=== PATIENT | female | born 1975 | race Hispanic/Latino ===

== ENCOUNTER → 2016-10-06 | Outpatient (CLI) | payer OTHER ==
--- NOTE | 2016-10-07 06:01 | ECHO ---
DATE OF PROCEDURE: 10/06/2016 REFERRING PHYSICIAN: Dr. Jay Marie. INDICATION: Murmur. HEIGHT: 157 cm. WEIGHT: 82.1 kg. MEASUREMENTS: Ventricular septum: 1.09 cm Posterior wall: 0.93 cm Left ventricle diastole: 4.0 cm Left atrium: 3.7 cm LVOT: 1.8 cm Aortic root: 2.4 cm Inferior vena cava: 1.9 cm DOPPLER MEASUREMENTS: Aortic valve velocity: 251 cm/s LVOT VTI: 45.8 cm Peak aortic valve gradient: 25 mmHg. Mean aortic valve gradient: 13 mmHg. LVOT velocity: 126 cm/s LVOT VTI: 23.8 cm Mitral E velocity: 79.0 cm/s Mitral A velocity: 78.5 cm/s Mitral deacceleration time: 243 ms Very mild tricuspid regurgitation. Pulmonary artery systolic pressure 25 mmHg by pulmonary acceleration time method. DESCRIPTION: Rhythm was sinus. Image quality was good. No pericardial effusion. CONCLUSIONS: 1. Mild focal thickening of a 3-cusp aortic valve. Slight degree of aortic valve stenosis. No aortic regurgitation. 2. Mild mitral aortic calcification. No mitral regurgitation. 3. Normal left ventricle, internal dimension and wall thickness. Normal LV wall motion and wall thickening. Normal LV systolic and diastolic function. LVEF 65% by visual estimate.
== END ==
LOC: M CARPUL 14:33
PROVIDERS: ATTEND Family Medicine
DX: R01.1 Cardiac murmur, unspecified (principal)

== ENCOUNTER → 2017-02-19 | Outpatient (REF) | payer OTHER | LOC: M SFHCWAGY 13:57 | PROVIDERS: ATTEND Family Medicine | DX: Z12.4 Encounter for screening for malignant neoplasm of cervix (principal); Z11.3 Encounter for screening for infections with a predominantly sexual mode of transmission ==

== ENCOUNTER → 2017-03-09 | Outpatient (CLI) | payer OTHER ==
--- NOTE | 2017-03-09 12:00 | REPMRS ---
Patient History The patient states she had a clinical breast exam in 02/10 Baseline Mammogram No known family history of cancer. [facility] Woman Screen Mammo: March 09, 2017 - Exam #: [id number] Bilateral CC and MLO view(s) were taken. Technologist: Loraine Valdez, Technologist FINDINGS: There are scattered fibroglandular densities. There is no evidence of cancer on this mammogram. ASSESSMENT: BI-RADS/ACR category 2 mammogram. Benign finding(s). Recommendation Routine screening mammogram of both breasts in 1 year (for women over age 40). This mammogram was interpreted with the aid of an FDA-approved computer-aided dectection system. Electronically Signed By: Praveen Lopez MD 03/09/17 1200
== END ==
LOC: M WHC 09:42
PROVIDERS: ATTEND Family Medicine
DX: Z12.31 Encounter for screening mammogram for malignant neoplasm of breast (principal)

== ENCOUNTER → 2017-03-09 | Outpatient (CLI) | payer OTHER ==
[2017-03-09 10:11] LABS: BASO % 0.4 % (0.0-1.0); EOS # 0.2 K/mm3 (0.0-0.50); EOS % 3.5 % (0.0-3.0); LARGE UNSTAINED CELL # 0.1 K/mm3 (0.0-0.4); LARGE UNSTAINED CELL % 2.6 % (0.0-4.0); LYMPH # 1.3 K/mm3 (1.5-4.5); LYMPH % 23.3 % (24.0-44.0); MEAN CORPUSCULAR HEMOGLOBIN 18.5 pg (27.0-33.0); MEAN CORPUSCULAR HGB CONC 28.5 g/dl (32.0-36.5); MEAN CORPUSCULAR VOLUME 64.9 fl (80.0-96.0); MONO # 0.3 K/mm3 (0.0-0.8); MONO % 5.2 % (0.0-5.0); NEUTROPHILS # 3.2 K/mm3 (1.8-7.7); PLATELET COUNT, AUTOMATED 402 k/mm3 (150-450); RED CELL DISTRIBUTION WIDTH 17.5 % (11.5-14.5); WHITE BLOOD COUNT 4.9 K/mm3 (4.0-10.0)
[2017-03-09 10:28] LABS: ADD MORPHOLOGY? YES
[2017-03-09 10:30] LABS: ANISOCYTOSIS 1+; HYPOCHROMASIA 3+
[2017-03-09 10:31] LABS: MICROCYTOSIS 3+
[2017-03-09 10:47] LABS: VITAMIN B12 LEVEL 446 PG/ML (247-911)
[2017-03-09 10:48] LABS: FOLATE 18.9 NG/ML (>5.4)
[2017-03-09 11:11] LABS: ALBUMIN 3.4 GM/DL (3.2-5.2); ALBUMIN/GLOBULIN RATIO 0.71 (1.00-1.93); ALKALINE PHOSPHATASE 112 U/L (45-117); ALT/SGPT 21 U/L (12-78); ANION GAP 4 MEQ/L (8-16); AST/SGOT 18 U/L (15-37); BILIRUBIN,TOTAL 0.4 MG/DL (0.2-1.0); BLOOD UREA NITROGEN 10 MG/DL (7-18); CALCIUM LEVEL 9.1 MG/DL (8.5-10.1); CARBON DIOXIDE LEVEL 28 MEQ/L (21-32); CHLORIDE LEVEL 102 MEQ/L (98-107); CHOLESTEROL LEVEL 147 MG/DL (<200); CREATININE FOR GFR 0.75 MG/DL (0.55-1.02); FREE T4 0.95 NG/DL (0.76-1.46); GLOMERULAR FILTRATION RATE > 60.0 (>58); GLUCOSE, FASTING 85 MG/DL (70-105); POTASSIUM SERUM 4.7 MEQ/L (3.5-5.1); SODIUM LEVEL 134 MEQ/L (136-145); TOTAL PROTEIN 8.2 GM/DL (6.4-8.2); TRIGLYCERIDES LEVEL 110 MG/DL (<150)
--- NOTE | 2017-03-10 02:31 | REP ---
Clinical: Lower back pain extending to the extremities. Technique: AP, lateral, bilateral oblique and coned-down views. Findings: Advanced multilevel degenerative disc osteophyte complex noted at the L3-4, L4-5, and L5-S1 levels. Findings include osteophytosis, endplate sclerosis, disc space narrowing and hypertrophic facet changes. Mild degenerative changes noted throughout the remaining visualized lower thoracic and lumbar spine. Alignment and lordosis maintained. No acute fracture / compression injury or subluxation. Impression: 1. Advanced multilevel degenerative disc osteophyte complex at the L3-4 through L5-S1 levels along with mild to moderate degenerative changes to the remaining in the lower thoracic and lumbar spine. 2. No acute fracture / compression injury or subluxation. Signed by Darrell Dejesus MD 03/10/2017 02:22 A
== END ==
LOC: M LAB 09:00
PROVIDERS: ATTEND Physician Assistant
DX: Z00.00 Encounter for general adult medical examination without abnormal findings (principal); M51.16 Intervertebral disc disorders with radiculopathy, lumbar region

== ENCOUNTER → 2017-03-12 | Outpatient (CLI) | payer OTHER ==
[2017-03-12 15:28] LABS: PERCENT SATURATION 6.7 % (13.2-37.4)
[2017-03-12 15:53] LABS: BASO % 0.4 % (0.0-1.0); EOS # 0.2 K/mm3 (0.0-0.50); EOS % 3.1 % (0.0-3.0); LARGE UNSTAINED CELL # 0.1 K/mm3 (0.0-0.4); LARGE UNSTAINED CELL % 1.9 % (0.0-4.0); LYMPH # 1.5 K/mm3 (1.5-4.5); LYMPH % 23.2 % (24.0-44.0); MEAN CORPUSCULAR HEMOGLOBIN 18.7 pg (27.0-33.0); MEAN CORPUSCULAR HGB CONC 28.8 g/dl (32.0-36.5); MONO # 0.4 K/mm3 (0.0-0.8); MONO % 6.4 % (0.0-5.0); PLATELET COUNT, AUTOMATED 385 k/mm3 (150-450); RED CELL DISTRIBUTION WIDTH 17.4 % (11.5-14.5); WHITE BLOOD COUNT 6.2 K/mm3 (4.0-10.0)
[2017-03-12 15:56] LABS: ADD MORPHOLOGY? YES
[2017-03-12 21:25] LABS: HYPOCHROMASIA 2+; MICROCYTOSIS 3+
[2017-03-12 21:26] LABS: ANISOCYTOSIS 2+
== END ==
LOC: M LAB 13:30
PROVIDERS: ATTEND Physician Assistant
DX: D64.9 Anemia, unspecified (principal)

== ENCOUNTER 2017-03-25 16:45 | Emergency (ER) | payer OTHER ==
[~2017-03-25] VITALS: Ht 157.5 cm; Wt 86.1 kg
[2017-03-25] MEDS ORDERED: IRON65TA PO (16:55)
[2017-03-25] MEDS ORDERED: OMEP40CA2 PO (16:55)
[2017-03-25] MEDS ORDERED: TRAM50TA2 PO (16:55)
[2017-03-25 18:09] VITALS: BP 106/62
== END 2017-03-25 18:09 | disposition home or self-care (01) ==
LOC: M ED 16:45
DX: D50.9 Iron deficiency anemia, unspecified (principal); E11.9 Type 2 diabetes mellitus without complications; J45.909 Unspecified asthma, uncomplicated; Z98.84 Bariatric surgery status; B19.20 Unspecified viral hepatitis C without hepatic coma; Z79.899 Other long term (current) drug therapy

== ENCOUNTER → 2017-03-25 | Outpatient (CLI) | payer OTHER ==
[~2017-03-25] MED LIST: IRON65TA PO; OMEP40CA2 PO; TRAM50TA2 PO
[2017-03-25 13:16] LABS: BASO % 0.6 % (0.0-1.0); EOS # 0.3 K/mm3 (0.0-0.50); EOS % 3.9 % (0.0-3.0); LARGE UNSTAINED CELL # 0.1 K/mm3 (0.0-0.4); LARGE UNSTAINED CELL % 2.1 % (0.0-4.0); LYMPH # 1.3 K/mm3 (1.5-4.5); LYMPH % 17.3 % (24.0-44.0); MEAN CORPUSCULAR HEMOGLOBIN 18.2 pg (27.0-33.0); MEAN CORPUSCULAR HGB CONC 28.1 g/dl (32.0-36.5); MEAN CORPUSCULAR VOLUME 64.7 fl (80.0-96.0); MONO # 0.5 K/mm3 (0.0-0.8); NEUTROPHILS # 4.6 K/mm3 (1.8-7.7); PLATELET COUNT, AUTOMATED 348 k/mm3 (150-450); RED CELL DISTRIBUTION WIDTH 18.6 % (11.5-14.5); WHITE BLOOD COUNT 6.6 K/mm3 (4.0-10.0)
[2017-03-25 13:22] LABS: ADD MORPHOLOGY? YES
[2017-03-25 13:54] LABS: HYPOCHROMASIA 3+; MICROCYTOSIS 3+
[2017-03-25 13:55] LABS: ANISOCYTOSIS 2+
[2017-03-29 14:10] LABS: HEPATITIS C QUANTITATION HCV Not Detected IU/mL (.)
== END ==
LOC: M LAB 12:20
PROVIDERS: ATTEND Physician Assistant
DX: D50.9 Iron deficiency anemia, unspecified (principal)

== ENCOUNTER → 2017-04-01 | Outpatient (CLI) | payer OTHER ==
--- NOTE | 2017-04-01 16:05 | REP ---
Clinical: Venous insufficiency. Technique: Real time justice scale and color Doppler evaluation of the right lower extremity venous system. Findings: The greater saphenous vein and associated small collaterals and perforating vessels demonstrate no evidence for reflux. The deep venous system demonstrates reflux including the common femoral vein, superficial femoral vein and popliteal vein. The anterior accessory saphenous vein demonstrates minimal reflux when the patient is in the upright position only. The lesser saphenous vein demonstrates significant reflux extending into multiple peripheral collateral vessels. The lesser saphenous vein distends to 9.4 mm with a reflux duration of 3.1 seconds. Impression: Reflux noted throughout the deep venous system as well as involving the lesser saphenous vein. Signed by Darrell Dejesus MD 04/01/2017 03:56 P
== END ==
LOC: M RAD 13:58
PROVIDERS: ATTEND Physician Assistant
DX: I83.811 Varicose veins of right lower extremity with pain (principal)

== ENCOUNTER → 2017-04-04 | Outpatient (CLI) | payer OTHER | LOC: M LAB 08:35 | PROVIDERS: ATTEND Physician Assistant | DX: J02.9 Acute pharyngitis, unspecified (principal) ==

== ENCOUNTER → 2017-07-15 | Outpatient (CLI) | payer OTHER ==
[2017-07-15 16:31] LABS: BASO # 0.1 10^3/uL (0.0-0.2); BASO % 0.9 % (0.0-1.0); EOS # 0.6 10^3/uL (0.0-0.50); EOS % 9.9 % (0.0-3.0); IMMATURE GRANULOCYTE % 0.3 % (0-0); LYMPH # 1.3 10^3/uL (1.5-4.5); LYMPH % 20.4 % (24.0-44.0); MEAN CORPUSCULAR HGB CONC 27.9 g/dl (32.0-36.5); MONO # 0.8 10^3/uL (0.0-0.8); MONO % 11.8 % (0.0-5.0); NEUTROPHILS # 3.6 10^3/uL (1.8-7.7); NEUTROPHILS % 56.7 % (36.0-66.0); PLATELET COUNT, AUTOMATED 331 10^3/uL (150-450); RETIC HEMOGLOBIN EQUIVALENT 20.8 pg (24-36); RETICULOCYTE % 1.3 % (0.5-1.5); WHITE BLOOD COUNT 6.4 10^3/uL (4.0-10.0)
[2017-07-15 16:37] LABS: ADD MORPHOLOGY? YES; MEAN CORPUSCULAR VOLUME 64.7 fl (80.0-96.0); POSITIVE MORPH POS FLAG; RED CELL DISTRIBUTION WIDTH 22.1 % (11.5-14.5)
[2017-07-15 17:50] LABS: HYPOCHROMASIA 2+; POLYCHROMASIA 1+
[2017-07-15 17:51] LABS: ANISOCYTOSIS 2+; MICROCYTOSIS 1+; OVALOCYTES 1+; POIKILOCYTOSIS 2+
== END ==
LOC: M LAB 15:51
PROVIDERS: ATTEND Physician Assistant
DX: D50.8 Other iron deficiency anemias (principal); Z98.84 Bariatric surgery status

== ENCOUNTER 2017-08-21 02:09 | Emergency (ER) | payer OTHER ==
[~2017-08-21] VITALS: Ht 157.5 cm; Wt 84.1 kg
[2017-08-21 02:10] VITALS: BP 128/85
[2017-08-21] MEDS ORDERED: AMOX875T PO (02:15)
[2017-08-21] MEDS ORDERED: AMPICILLIN SOD/SULBACTAM SOD 3 GM in D5W MINI-BAG PLUS 100 ML IV ONE (02:30)
[2017-08-21] MEDS ORDERED: AUGMENTIN 875 MG TAB PO ONE (02:45)
[2017-08-21] MEDS ORDERED: LIDOCAINE W/EPINEPHRINE 1% 20ML VIAL As Ordered ONE (02:51)
[2017-08-21] MEDS ORDERED: AUGM500T34 PO (03:35)
== END 2017-08-21 03:46 | disposition left against medical advice (07) ==
LOC: M ED 02:09
DX: S11.91XA Laceration without foreign body of unspecified part of neck, initial encounter (principal); W54.0XXA Bitten by dog, initial encounter; Y92.9 Unspecified place or not applicable; Y93.9 Activity, unspecified; Y99.9 Unspecified external cause status; Z86.39 Personal history of other endocrine, nutritional and metabolic disease; Z98.84 Bariatric surgery status; Z79.899 Other long term (current) drug therapy; Z53.21 Procedure and treatment not carried out due to patient leaving prior to being seen by health care provider

== ENCOUNTER 2018-01-19 22:50 | Emergency (ER) | payer OTHER ==
[2018-01-19] MEDS: diphenhydrAMINE INJ 50MG/ML VIAL (J1200) IV (23:58)
[2018-01-19] MEDS: dexameTHASONE 20 MG/5 ML VIAL (J1100) IV (23:58)
== END 2018-01-20 01:29 | disposition home or self-care (01) ==
LOC: M ED 22:50
DX: T78.40XA Allergy, unspecified, initial encounter (principal); Y92.9 Unspecified place or not applicable; Y93.9 Activity, unspecified; Z98.84 Bariatric surgery status
CPT/HCPCS: J1200

== ENCOUNTER 2018-03-29 11:12 | Emergency (ER) | payer OTHER ==
[2018-03-29] MEDS ORDERED: FAMOTIDINE IV BAG 20 MG in APPROPRIATE DILUENT 1 EA IV (12:30)
[2018-03-29] MEDS ORDERED: diphenhydrAMINE INJ 50MG/ML VIAL (J1200) IV (12:30)
[2018-03-29] MEDS ORDERED: methylPREDNISolone INJ 125 MG/2 ML VIAL (J2930) IV (12:30)
[2018-03-29] MEDS: ALBUTEROL SULFATE 2.5 MG/0.5 ML INH NEB SOLN NEB (12:53)
[2018-03-29] MEDS: diphenhydrAMINE 50 MG CAP PO (12:55)
[2018-03-29] MEDS: predniSONE 20 MG TAB PO (12:55)
[2018-03-29] MEDS: FAMOTIDINE 20 MG TAB PO (12:55)
== END 2018-03-29 13:17 | disposition home or self-care (01) ==
LOC: M ED 11:12
DX: J45.901 Unspecified asthma with (acute) exacerbation (principal); Z87.2 Personal history of diseases of the skin and subcutaneous tissue; E11.9 Type 2 diabetes mellitus without complications; Z98.0 Intestinal bypass and anastomosis status; Z98.890 Other specified postprocedural states
CPT/HCPCS: 94640

== ENCOUNTER → 2018-04-07 | Outpatient (CLI) | payer OTHER ==
[2018-04-07 10:18] LABS: BASO % 0.3 % (0.0-1.0); EOS # 0.2 10^3/uL (0.0-0.50); EOS % 3.3 % (0.0-3.0); HEMATOCRIT 38.8 % (36.0-47.0); HEMOGLOBIN 12.2 g/dl (12.0-15.5); IMMATURE GRANULOCYTE % 0.3 % (0-3.0); LYMPH # 1.2 10^3/uL (1.5-4.5); LYMPH % 20.8 % (24.0-44.0); MEAN CORPUSCULAR HGB CONC 31.4 g/dl (32.0-36.5); MEAN CORPUSCULAR VOLUME 82.7 fl (80.0-96.0); MONO # 0.5 10^3/uL (0.0-0.8); MONO % 8.6 % (0.0-5.0); NEUTROPHILS # 3.8 10^3/uL (1.8-7.7); NEUTROPHILS % 66.7 % (36.0-66.0); PLATELET COUNT, AUTOMATED 318 10^3/uL (150-450); RED BLOOD COUNT 4.69 10^6/uL (4.00-5.40); RED CELL DISTRIBUTION WIDTH 13.2 % (11.5-14.5); WHITE BLOOD COUNT 5.7 10^3/uL (4.0-10.0)
[2018-04-07 10:44] LABS: ERYTHROCYTE SEDIMENTATION RATE 41 mm/hr (0-20)
[2018-04-07 10:45] LABS: ALBUMIN 3.1 GM/DL (3.2-5.2); ALBUMIN/GLOBULIN RATIO 0.79 (1.00-1.93); ALKALINE PHOSPHATASE 103 U/L (45-117); ALT/SGPT 22 U/L (12-78); ANION GAP 7 MEQ/L (8-16); AST/SGOT 15 U/L (7-37); BILIRUBIN,TOTAL 0.4 MG/DL (0.2-1.0); BLOOD UREA NITROGEN 8 MG/DL (7-18); CALCIUM LEVEL 8.8 MG/DL (8.5-10.1); CARBON DIOXIDE LEVEL 28 MEQ/L (21-32); CHLORIDE LEVEL 107 MEQ/L (98-107); COMPLEMENT C4 28.1 MG/DL (10-40); CREATININE FOR GFR 0.72 MG/DL (0.55-1.30); GLOMERULAR FILTRATION RATE > 60.0 (>58); GLUCOSE, FASTING 123 MG/DL (70-100); POTASSIUM SERUM 4.6 MEQ/L (3.5-5.1); RHEUMATOID FACTOR QUANT < 10.0 IU/ML (<15.0); SODIUM LEVEL 142 MEQ/L (136-145); THYROXINE (T4) 10.4 UG/DL (4.5-12.0)
[2018-04-07 12:20] LABS: TOTAL T3 103.5 NG/DL (60.0-181.0)
[2018-04-08 09:44] LABS: THYROGLOBULIN ANTIBODY < 15.0 U/ML (<60.0); THYROID PEROXIDASE ANTIBODY < 28.0 U/ML (<60.0)
[2018-04-12 09:24] LABS: ANTINUCLEAR ANTIBODIES DIRECT Negative (Negative); IGE RECEPTOR ABY 1 20.5 (<10)
== END ==
LOC: M LAB 08:53
DX: L50.1 Idiopathic urticaria (principal)
CPT/HCPCS: 84443

== ENCOUNTER 2018-08-17 13:06 | Emergency (ER) | payer OTHER ==
[2018-08-17] MEDS: predniSONE 20 MG TAB PO (13:37)
[2018-08-17] MEDS: CYCLOBENZAPRINE 10 MG TAB PO (13:37)
== END 2018-08-17 13:39 | disposition home or self-care (01) ==
LOC: M ED 13:06
DX: S76.312A Strain of muscle, fascia and tendon of the posterior muscle group at thigh level, left thigh, initial encounter (principal); T78.40XA Allergy, unspecified, initial encounter; X58.XXXA Exposure to other specified factors, initial encounter; Y92.099 Unspecified place in other non-institutional residence as the place of occurrence of the external cause; Y93.9 Activity, unspecified; Y99.9 Unspecified external cause status; E11.9 Type 2 diabetes mellitus without complications; Z98.84 Bariatric surgery status; Z79.899 Other long term (current) drug therapy
CPT/HCPCS: 99283

== ENCOUNTER → 2019-01-02 | Outpatient (REF) | payer OTHER ==
[~2019-01-02] MED LIST changes: +ALBU17IN2 INH; +ALLE180T33 PO; +AMOX875T PO; +AUGM500T34 PO; +CETI10TA PO; +CYCL10TA PO; +HYDR1CAP25 PO; +PRED10PA2 PO; +PRED20TA PO; +RANI15TA PO; +VENTAER
[2019-01-02 19:40] LABS: BASO # 0.1 10^3/uL (0.0-0.2); BASO % 0.8 % (0.0-1.0); EOS # 0.4 10^3/uL (0.0-0.50); EOS % 5.3 % (0.0-3.0); HEMATOCRIT 34.6 % (36.0-47.0); HEMOGLOBIN 10.3 g/dl (12.0-15.5); LYMPH # 1.5 10^3/uL (1.5-4.5); LYMPH % 19.4 % (24.0-44.0); MEAN CORPUSCULAR HEMOGLOBIN 22.2 pg (27.0-33.0); MEAN CORPUSCULAR HGB CONC 29.8 g/dl (32.0-36.5); MEAN CORPUSCULAR VOLUME 74.6 fl (80.0-96.0); MONO # 0.6 10^3/uL (0.0-0.8); MONO % 7.1 % (0.0-5.0); NEUTROPHILS # 5.2 10^3/uL (1.8-7.7); NEUTROPHILS % 67.1 % (36.0-66.0); PLATELET COUNT, AUTOMATED 401 10^3/uL (150-450); RED BLOOD COUNT 4.64 10^6/uL (4.00-5.40); WHITE BLOOD COUNT 7.7 10^3/uL (4.0-10.0)
[2019-01-02 19:45] LABS: ALBUMIN 3.4 GM/DL (3.2-5.2); ALT/SGPT 17 U/L (12-78); BILIRUBIN,TOTAL 0.3 MG/DL (0.2-1.0); BLOOD UREA NITROGEN 11 MG/DL (7-18); CALCIUM LEVEL 8.5 MG/DL (8.5-10.1); CARBON DIOXIDE LEVEL 26 MEQ/L (21-32); CHLORIDE LEVEL 106 MEQ/L (98-107); CHOLESTEROL LEVEL 155 MG/DL (<200); CHOLESTEROL RISK RATIO 3.229 (<5); CREATININE FOR GFR 0.83 MG/DL (0.55-1.30); GLOMERULAR FILTRATION RATE > 60.0 (>58); GLUCOSE, FASTING 105 MG/DL (70-100); HDL CHOLESTEROL 48 MG/DL (>40); LDL CHOLESTEROL 67 MG/DL (<100); NON-HDL-C 107 MG/DL; POTASSIUM SERUM 4.3 MEQ/L (3.5-5.1); SODIUM LEVEL 137 MEQ/L (136-145); TOTAL PROTEIN 7.5 GM/DL (6.4-8.2); TRIGLYCERIDES LEVEL 200 MG/DL (<150)
[2019-01-02 19:58] LABS: TOTAL 25(OH) VITAMIN D 10.5 NG/ML (30.0-100.0)
[2019-01-02 20:04] LABS: HEMOGLOBIN A1c 6.2 %
== END ==
LOC: M LAB REF 14:19
PROVIDERS: ATTEND Nurse Practitioner Family
DX: Z13.9 Encounter for screening, unspecified (principal)

== ENCOUNTER 2019-04-22 15:21 | Emergency (ER) | payer OTHER ==
[~2019-04-22] VITALS: Ht 154.9 cm; Wt 85.9 kg
[2019-04-22] MEDS ORDERED: KETOROLAC 30 MG/ML VIAL (J1885) IV ONE (15:45)
[2019-04-22] MEDS ORDERED: NS 1,000 ML IV ONE (15:45)
[2019-04-22] MEDS ORDERED: AMPICILLIN SOD/SULBACTAM SOD 3 GM in D5W MINI-BAG PLUS 100 ML IV ONE (15:45)
[2019-04-22 16:36] LABS: BASO % 0.6 % (0.0-1.0); EOS # 0.4 10^3/uL (0.0-0.50); EOS % 5.2 % (0.0-3.0); HEMATOCRIT 28.4 % (36.0-47.0); HEMOGLOBIN 8.4 g/dl (12.0-15.5); LYMPH # 1.4 10^3/uL (1.5-4.5); LYMPH % 19.6 % (24.0-44.0); MEAN CORPUSCULAR HEMOGLOBIN 19.9 pg (27.0-33.0); MEAN CORPUSCULAR HGB CONC 29.6 g/dl (32.0-36.5); MEAN CORPUSCULAR VOLUME 67.3 fl (80.0-96.0); MONO # 0.8 10^3/uL (0.0-0.8); MONO % 11.3 % (0.0-5.0); NEUTROPHILS # 4.4 10^3/uL (1.8-7.7); PLATELET COUNT, AUTOMATED 348 10^3/uL (150-450); RED BLOOD COUNT 4.22 10^6/uL (4.00-5.40); WHITE BLOOD COUNT 6.9 10^3/uL (4.0-10.0)
[2019-04-22 16:52] LABS: BLOOD UREA NITROGEN 9 MG/DL (7-18); C REACTIVE PROTEIN QUANTITATIV 0.65 MG/DL (0.00-0.30); CALCIUM LEVEL 8.4 MG/DL (8.5-10.1); CARBON DIOXIDE LEVEL 23 MEQ/L (21-32); CHLORIDE LEVEL 112 MEQ/L (98-107); CREATININE FOR GFR 0.96 MG/DL (0.55-1.30); GLOMERULAR FILTRATION RATE > 60.0 (>58); GLUCOSE, FASTING 90 MG/DL (70-100); SODIUM LEVEL 141 MEQ/L (136-145)
[2019-04-22] MEDS ORDERED: ISOVUE-370 76% 100ML VIAL (Q9967) As Ordered ONE (16:59)
[2019-04-22 17:18] LABS: ERYTHROCYTE SEDIMENTATION RATE 60 mm/hr (0-20)
[2019-04-22 18:08] VITALS: BP 133/74
--- NOTE | 2019-04-22 18:26 | REPVR ---
EXAM: CT Maxillofacial With Contrast EXAM DATE/TIME: 04/22/2019 5:29 PM CLINICAL HISTORY: 43 years old, female; Jaw pain; Additional info: Left upper tooth infection, swelling left maxilla TECHNIQUE: Imaging protocol: Computed tomography images of the face with intravenous contrast. Coronal and sagittal reformatted images were created and reviewed. Radiation optimization: All CT scans at this facility use at least one of these dose optimization techniques: automated exposure control; mA and/or kV adjustment per patient size (includes targeted exams where dose is matched to clinical indication); or iterative reconstruction. Contrast material: ISOVUE 370;Contrast volume: 75 ml;Contrast route: IV; COMPARISON: No relevant prior studies available. FINDINGS: Orbits: Orbits are normal. Globes are unremarkable. Sinuses: Minimal inflammatory changes in the ethmoid, right sphenoid, and base of left maxillary sinuses. Bones/joints: Examination of the mandible is unremarkable. Soft tissues: Soft tissue swelling anterior to the paramedian aspect of the alveolar process of the maxilla and left paranasal region. Findings compatible with suspected dental related infection. IMPRESSION: Soft tissue swelling anterior to the paramedian aspect of the alveolar process of the maxilla and left paranasal region. Findings compatible with suspected dental related infection. Electronically signed by: Edgar Monique On 04/22/2019 18:25:46 PM
[2019-04-22] MEDS ORDERED: AUGM875T28 PO (18:34)
[2019-04-22] MEDS ORDERED: IBUP80TA PO (18:34)
== END 2019-04-22 18:50 | disposition home or self-care (01) ==
LOC: M ED 15:21
DX: K04.7 Periapical abscess without sinus (principal); D50.8 Other iron deficiency anemias; J45.909 Unspecified asthma, uncomplicated
CPT/HCPCS: 70487; 80048; 85025; 85652; 86140; 96361; 96365; 96375; 99284; J1885; Q9967

== ENCOUNTER 2019-05-08 12:41 | Emergency (ER) | payer OTHER ==
[~2019-05-08] VITALS: Ht 157.5 cm; Wt 85.1 kg
[~2019-05-08 12:41] MED LIST changes: +AUGM875T28 PO; +IBUP80TA PO
[2019-05-08] MEDS ORDERED: NS 1,000 ML IV ONE (13:30)
[2019-05-08 13:47] LABS: BASO # 0.1 10^3/uL (0.0-0.2); BASO % 0.6 % (0.0-1.0); EOS # 0.3 10^3/uL (0.0-0.50); HEMATOCRIT 33.7 % (36.0-47.0); HEMOGLOBIN 9.4 g/dl (12.0-15.5); LYMPH # 1.4 10^3/uL (1.5-4.5); LYMPH % 17.3 % (24.0-44.0); MEAN CORPUSCULAR HEMOGLOBIN 19.8 pg (27.0-33.0); MEAN CORPUSCULAR HGB CONC 27.9 g/dl (32.0-36.5); MEAN CORPUSCULAR VOLUME 71.1 fl (80.0-96.0); MONO # 0.6 10^3/uL (0.0-0.8); NEUTROPHILS # 5.7 10^3/uL (1.8-7.7); NEUTROPHILS % 70.9 % (36.0-66.0); PLATELET COUNT, AUTOMATED 388 10^3/uL (150-450); RED BLOOD COUNT 4.74 10^6/uL (4.00-5.40)
[2019-05-08 13:57] LABS: INR 0.99; PARTIAL THROMBOPLASTIN TIME 24.5 SECONDS (25.0-38.4); PROTHROMBIN TIME 12.8 SECONDS (11.8-14.0)
[2019-05-08 14:17] LABS: BLOOD UREA NITROGEN 9 MG/DL (7-18); CALCIUM LEVEL 9.2 MG/DL (8.5-10.1); CARBON DIOXIDE LEVEL 25 MEQ/L (21-32); CHLORIDE LEVEL 109 MEQ/L (98-107); CK-MB VALUE MASS < 1.0 NG/ML (<3.6); CPK CREATINE PHOSPHOKINASE 78 U/L (26-192); CREATININE FOR GFR 0.93 MG/DL (0.55-1.30); FERRITIN 5 NG/ML (8-252); FREE T4 0.91 NG/DL (0.76-1.46); GLOMERULAR FILTRATION RATE > 60.0 (>58); GLUCOSE, FASTING 118 MG/DL (70-100); IRON (FE) 26 UG/DL (50-170); MB/CK RELATIVE INDEX 1.28 (< OR =4); PERCENT SATURATION 5.7 % (13.2-45.0); POTASSIUM SERUM 3.8 MEQ/L (3.5-5.1); SODIUM LEVEL 140 MEQ/L (136-145); TOTAL IRON BINDING CAPACITY 454 UG/DL (250-450); TROPONIN I < 0.02 NG/ML (< 0.10)
[2019-05-08 14:25] LABS: HCG, SERUM QUALITATIVE NEGATIVE (NEGATIVE)
[2019-05-08 14:31] LABS: VITAMIN B12 LEVEL 546 PG/ML (247-911)
[2019-05-08 15:30] VITALS: BP 113/68
--- NOTE | 2019-05-08 19:45 | REP ---
REASON: Dyspnea. FINDINGS: The superior mediastinal structures are midline. The cardiac silhouette is unremarkable in size, shape, and position. The diaphragmatic surfaces of the lungs are regular, and the costophrenic angles are clear. The pulmonary carlson are clear. The imaged osseous structures are intact. IMPRESSION: There is no acute cardiopulmonary disease. Electronically Signed by Christiano Calle DO 05/09/2019 11:58 A
--- NOTE | 2019-05-08 20:47 | ECGEPIP ---
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
== END 2019-05-08 16:06 | disposition home or self-care (01) ==
LOC: M ED 12:41
DX: D50.9 Iron deficiency anemia, unspecified (principal); Z98.84 Bariatric surgery status

== ENCOUNTER → 2019-06-09 | Outpatient (CLI) | payer OTHER ==
[~2019-06-09] MED LIST changes: -ALBU17IN2 INH; +PROV108A INH
[2019-06-09 11:15] LABS: HEMOGLOBIN A1c 5.7 %
[2019-06-09 11:31] LABS: ALBUMIN 3.5 GM/DL (3.2-5.2); ALT/SGPT 19 U/L (12-78); BILIRUBIN,TOTAL 0.4 MG/DL (0.2-1.0); BLOOD UREA NITROGEN 12 MG/DL (7-18); CALCIUM LEVEL 9.5 MG/DL (8.5-10.1); CARBON DIOXIDE LEVEL 26 MEQ/L (21-32); CHLORIDE LEVEL 107 MEQ/L (98-107); CHOLESTEROL LEVEL 172 MG/DL (<200); CHOLESTEROL RISK RATIO 2.646 (<5); CREATININE FOR GFR 0.75 MG/DL (0.55-1.30); GLOMERULAR FILTRATION RATE > 60.0 (>58); GLUCOSE, FASTING 81 MG/DL (70-100); HDL CHOLESTEROL 65 MG/DL (>40); LDL CHOLESTEROL 68 MG/DL (<100); NON-HDL-C 107 MG/DL; POTASSIUM SERUM 4.4 MEQ/L (3.5-5.1); SODIUM LEVEL 140 MEQ/L (136-145); TOTAL PROTEIN 7.8 GM/DL (6.4-8.2); TRIGLYCERIDES LEVEL 196 MG/DL (<150)
[2019-06-09 11:36] LABS: MAU/CREAT RATIO 6.2 MCG/MG (0.0-30.0)
== END ==
LOC: M LAB 10:05
PROVIDERS: ATTEND Family Medicine
DX: E11.9 Type 2 diabetes mellitus without complications (principal)

== ENCOUNTER 2019-06-10 04:33 | Emergency (ER) | payer OTHER ==
[~2019-06-10] VITALS: Ht 157.5 cm; Wt 86.4 kg
[2019-06-10 04:34] VITALS: BP 138/70
== END 2019-06-10 05:40 | disposition left against medical advice (07) ==
LOC: M ED 04:33
DX: Z53.21 Procedure and treatment not carried out due to patient leaving prior to being seen by health care provider (principal)

== ENCOUNTER → 2019-06-26 | Outpatient (REF) | payer OTHER ==
[~2019-06-26] MED LIST changes: -OMEP40CA2 PO; +OMEP40CA97 PO; +PERC5TAB12 PO
[2019-06-26 18:03] LABS: BASO # 0.1 10^3/uL (0.0-0.2); BASO % 0.8 % (0.0-1.0); EOS # 0.2 10^3/uL (0.0-0.5); EOS % 2.6 % (0.0-3.0); HEMATOCRIT 31.4 % (36.0-47.0); LYMPH # 1.5 10^3/uL (1.5-5.0); LYMPH % 22.7 % (24.0-44.0); MEAN CORPUSCULAR HEMOGLOBIN 19.4 pg (27.0-33.0); MEAN CORPUSCULAR HGB CONC 28.7 g/dl (32.0-36.5); MEAN CORPUSCULAR VOLUME 67.5 fl (80.0-96.0); MONO # 0.5 10^3/uL (0.0-0.8); MONO % 8.4 % (0.0-5.0); NEUTROPHILS # 4.2 10^3/uL (1.5-8.5); NEUTROPHILS % 65.3 % (36.0-66.0); PLATELET COUNT, AUTOMATED 476 10^3/uL (150-450); RED BLOOD COUNT 4.65 10^6/uL (4.00-5.40); WHITE BLOOD COUNT 6.4 10^3/uL (4.0-10.0)
[2019-06-26 18:14] LABS: PERCENT SATURATION 4.3 % (13.2-45.0)
== END ==
LOC: M LAB REF 16:34
PROVIDERS: ATTEND Nurse Practitioner Family
DX: D50.8 Other iron deficiency anemias (principal)

== ENCOUNTER 2019-09-24 19:58 | Emergency (ER) | payer OTHER ==
[~2019-09-24] VITALS: Ht 157.5 cm; Wt 90.9 kg
[2019-09-24 19:58] VITALS: BP 149/87
[~2019-09-24 19:58] MED LIST changes: -PERC5TAB12 PO
[2019-09-24 21:08] LABS: BASO % 0.5 % (0.0-1.0); EOS # 0.2 10^3/uL (0.0-0.5); EOS % 2.6 % (0.0-3.0); HEMATOCRIT 45.1 % (36.0-47.0); HEMOGLOBIN 13.7 g/dl (12.0-15.5); LYMPH # 1.4 10^3/uL (1.5-5.0); LYMPH % 16.4 % (24.0-44.0); MEAN CORPUSCULAR HGB CONC 30.4 g/dl (32.0-36.5); MEAN CORPUSCULAR VOLUME 78.8 fl (80.0-96.0); MONO # 0.7 10^3/uL (0.0-0.8); MONO % 8.1 % (0.0-5.0); NEUTROPHILS # 6.1 10^3/uL (1.5-8.5); PLATELET COUNT, AUTOMATED 281 10^3/uL (150-450); RED BLOOD COUNT 5.72 10^6/uL (4.00-5.40); WHITE BLOOD COUNT 8.5 10^3/uL (4.0-10.0)
[2019-09-24] MEDS ORDERED: ONDANSETRON 4MG/2ML VIAL (J2405) IV ONE (21:30)
[2019-09-24] MEDS ORDERED: NS 1,000 ML IV ONE (21:30)
[2019-09-24 21:31] LABS: ALBUMIN 3.9 GM/DL (3.2-5.2); ALT/SGPT 23 U/L (12-78); BILIRUBIN,DIRECT < 0.1 MG/DL (0.0-0.2); BILIRUBIN,TOTAL 0.3 MG/DL (0.2-1.0); BLOOD UREA NITROGEN 12 MG/DL (7-18); CALCIUM LEVEL 8.8 MG/DL (8.5-10.1); CARBON DIOXIDE LEVEL 26 MEQ/L (21-32); CHLORIDE LEVEL 105 MEQ/L (98-107); CREATININE FOR GFR 0.92 MG/DL (0.55-1.30); GLOMERULAR FILTRATION RATE > 60.0 (>58); GLUCOSE, FASTING 106 MG/DL (70-100); LIPASE 61 U/L (73-393); POTASSIUM SERUM 4.2 MEQ/L (3.5-5.1); SODIUM LEVEL 137 MEQ/L (136-145); TOTAL PROTEIN 8.1 GM/DL (6.4-8.2)
[2019-09-24] MEDS: KETOROLAC 30 MG/ML VIAL (J1885) IV ONE ×2 (21:36→21:41)
[2019-09-24 22:00] LABS: HCG, SERUM QUALITATIVE NEGATIVE (NEGATIVE)
[2019-09-24] MEDS ORDERED: MORPHINE 4 MG/ML 1ML VIAL/SYRINGE (J2270) IV ONE (22:00)
--- NOTE | 2019-09-24 23:21 | REPVR ---
PROCEDURE INFORMATION: Exam: CT Abdomen And Pelvis Without Contrast Exam date and time: 09/24/2019 10:20 PM Age: 44 years old Clinical indication: Abdominal pain; Flank; Right; Additional info: Right flank pain R/O kidney stone TECHNIQUE: Imaging protocol: Computed tomography of the abdomen and pelvis without contrast. Radiation optimization: All CT scans at this facility use at least one of these dose optimization techniques: automated exposure control; mA and/or kV adjustment per patient size (includes targeted exams where dose is matched to clinical indication); or iterative reconstruction. COMPARISON: CR Spine. Lumbosacral, complete 03/09/2017 9:25 AM FINDINGS: Liver: Normal. No mass. Gallbladder and bile ducts: There has been a cholecystectomy. Pancreas: Normal. No ductal dilation. Spleen: Normal. No splenomegaly. Adrenals: Normal. No mass. Kidneys and ureters: Normal. No hydronephrosis. Stomach and bowel: This patient is status post gastric bypass surgery. Appendix: The appendix is within normal limits. There is no appendiceal enlargement, periappendiceal inflammatory changes or abscess. Intraperitoneal space: Unremarkable. No free air. No significant fluid collection. Vasculature: Unremarkable. No abdominal aortic aneurysm. Lymph nodes: Unremarkable. No enlarged lymph nodes. Bladder: Unremarkable as visualized. Reproductive: Large ovarian dermoid measures 8.8 x 7.4 x 8 cm appears to arise from the right ovary. Small dermoid demonstrated in the left ovary measuring 2.1 x 1.3 x 2.7 cm contains a dense focus of calcification. Bones/joints: Mild central spinal stenosis L3-L4, severe central spinal stenosis L4-L5. The spine demonstrates mild degenerative changes. Soft tissues: Unremarkable. IMPRESSION: 1. There has been a cholecystectomy. 2. This patient is status post gastric bypass surgery. 3. The appendix is within normal limits. There is no appendiceal enlargement, periappendiceal inflammatory changes or abscess. 4. Bilateral ovarian dermoids. Electronically signed by: Edgar Moniuqe On 09/24/2019 23:20:55 PM
[2019-09-25] MEDS ORDERED: MORPHINE 4 MG/ML 1ML VIAL/SYRINGE (J2270) IV ONE
--- NOTE | 2019-09-25 00:55 | REPVR ---
PROCEDURE INFORMATION: Exam: US Pelvis Complete, Transabdominal Exam date and time: 09/24/2019 11:51 PM Age: 44 years old Clinical indication: Abdominal pain; Lower abdomen; Additional info: Abd pain with large ovarian cyst, R/O ovarian torsion TECHNIQUE: Imaging protocol: Real-time transabdominal pelvic ultrasound with image documentation. Complete exam. COMPARISON: CT ABD PELVIS W/O CONTRAST 09/24/2019 10:15 PM FINDINGS: Uterus/cervix: The uterus measures 10.2 cm in its cephalocaudad dimension and 6.5 x 7.0 cm in its AP and lateral dimensions. There is a heterogeneous mass centrally measuring 10.0 x 8.1 x 8.6 cm which may reflect a hemorrhagic cyst. Thick heterogeneous endometrium measuring 18 mm. Small nabothian cysts. Right adnexa: The right ovary measures 12.4 x 11.0 x 9.4 cm. There is blood flow at the periphery with a resistive index of 0.53. Left adnexa: The left ovary measures 2.8 x 5.2 x 2.5 cm and demonstrates blood flow with a resistive index of 0.52. There is a complex shadowing area within the ovary measuring approximately 2.8 cm. Free fluid: Trace left adnexal fluid which is physiologic in amount. Bladder: The urinary bladder is unremarkable. IMPRESSION: 1. Large right ovary with heterogeneous central mass measuring 10.0 x 8.1 x 8.6 cm which may reflect a hemorrhagic cyst. Blood flow is noted about the periphery. 2. Thick heterogeneous endometrium for age measuring 18 mm. 3. Mildly hyperechoic area in the left ovary measuring 2.8 cm of uncertain etiology. Left ovarian blood flow is noted. Electronically signed by: Negrito Vigil On 09/25/2019 00:55:07 AM
[2019-09-25] MEDS ORDERED: PERC5TAB12 PO (01:34)
[2019-09-25] MEDS ORDERED: OXYCODONE/APAP 5MG/325MG(BULK FOR ED) 1 TABLET PO ONE (01:45)
== END 2019-09-25 01:54 | disposition home or self-care (01) ==
LOC: M ED 19:58
DX: N83.292 Other ovarian cyst, left side (principal); N83.291 Other ovarian cyst, right side
CPT/HCPCS: 74176; 76830; 76856; 80048; 80076; 81001; 83690; 84703; 85025; 93976; 96361; 96374; 96375; 96376; 99284; J1885; J2270; J2405

== ENCOUNTER → 2019-10-03 | Outpatient (REF) | payer OTHER ==
[~2019-10-03] MED LIST changes: +PERC5TAB12 PO
[2019-10-03 18:19] LABS: BASO % 0.2 % (0.0-1.0); EOS # 0.3 10^3/uL (0.0-0.5); EOS % 4.8 % (0.0-3.0); HEMATOCRIT 43.4 % (36.0-47.0); HEMOGLOBIN 13.4 g/dl (12.0-15.5); LYMPH # 1.2 10^3/uL (1.5-5.0); LYMPH % 22.1 % (24.0-44.0); MEAN CORPUSCULAR HEMOGLOBIN 24.1 pg (27.0-33.0); MEAN CORPUSCULAR HGB CONC 30.9 g/dl (32.0-36.5); MEAN CORPUSCULAR VOLUME 78.1 fl (80.0-96.0); MONO # 0.4 10^3/uL (0.0-0.8); MONO % 6.4 % (0.0-5.0); NEUTROPHILS # 3.6 10^3/uL (1.5-8.5); NEUTROPHILS % 66.1 % (36.0-66.0); PLATELET COUNT, AUTOMATED 257 10^3/uL (150-450); RED BLOOD COUNT 5.56 10^6/uL (4.00-5.40); WHITE BLOOD COUNT 5.5 10^3/uL (4.0-10.0)
[2019-10-03 18:30] LABS: ALBUMIN 3.5 GM/DL (3.2-5.2); ALT/SGPT 27 U/L (12-78); BILIRUBIN,TOTAL 0.5 MG/DL (0.2-1.0); BLOOD UREA NITROGEN 8 MG/DL (7-18); CALCIUM LEVEL 8.9 MG/DL (8.5-10.1); CARBON DIOXIDE LEVEL 25 MEQ/L (21-32); CHLORIDE LEVEL 108 MEQ/L (98-107); CHOLESTEROL LEVEL 143 MG/DL (<200); CHOLESTEROL RISK RATIO 3.177 (<5); CREATININE FOR GFR 0.86 MG/DL (0.55-1.30); FREE T4 0.96 NG/DL (0.76-1.46); GLOMERULAR FILTRATION RATE > 60.0 (>58); GLUCOSE, FASTING 106 MG/DL (70-100); HDL CHOLESTEROL 45 MG/DL (>40); LDL CHOLESTEROL 64 MG/DL (<100); NON-HDL-C 98 MG/DL; POTASSIUM SERUM 3.9 MEQ/L (3.5-5.1); SODIUM LEVEL 139 MEQ/L (136-145); TOTAL 25(OH) VITAMIN D 12.7 NG/ML (30.0-100.0); TRIGLYCERIDES LEVEL 168 MG/DL (<150)
== END ==
LOC: M LAB REF 17:04
PROVIDERS: ATTEND Nurse Practitioner Family
DX: Z13.9 Encounter for screening, unspecified (principal); E11.9 Type 2 diabetes mellitus without complications; E66.9 Obesity, unspecified; D50.9 Iron deficiency anemia, unspecified; D64.9 Anemia, unspecified

== ENCOUNTER 2019-11-08 09:47 | Day surgery (SDC) | payer OTHER ==
[~2019-11-08] VITALS: Ht 157.5 cm; Wt 88.9 kg
[~2019-11-08 09:47] MED LIST changes: +ACET500T15 PO; +KETOROLAC 60 MG/2 ML VIAL (J1885) As Ordered ONE; +LIDOCAINE 2% INJ 100 MG/5 ML SDV (FOR ANES.) As Ordered ONE; +LR 1,000 ML IV ONE; +METOCLOPRAMIDE INJ 10MG/2ML VIAL (J2765) As Ordered ONE; +MIDAZOLAM INJ 2 MG/2 ML VIAL (J2250) As Ordered ONE; +ONDANSETRON 4MG/2ML VIAL (J2405) As Ordered ONE; +ROCURONIUM BROMIDE 50 MG/5 ML VIAL As Ordered ONE; +SUGAMMADEX SODIUM 500 MG/5 ML VIAL (BRIDION) As Ordered ONE; +dexameTHASONE 4 MG/ML 1ML VIAL (J1100) As Ordered ONE; +fentaNYL 100 MCG/2 ML INJECTION (J3010) As Ordered ONE; +propofoL 200 MG/20 ML VIAL As Ordered ONE
[2019-11-08] MEDS ORDERED: BUPIVACAINE HCL 0.25% 10 ML VIAL As Ordered ONE (09:48)
[2019-11-08 10:36] LABS: HEMATOCRIT 43.3 % (36.0-47.0); HEMOGLOBIN 13.7 g/dl (12.0-15.5); MEAN CORPUSCULAR HEMOGLOBIN 25.7 pg (27.0-33.0); MEAN CORPUSCULAR HGB CONC 31.6 g/dl (32.0-36.5); MEAN CORPUSCULAR VOLUME 81.2 fl (80.0-96.0); PLATELET COUNT, AUTOMATED 281 10^3/uL (150-450); RED BLOOD COUNT 5.33 10^6/uL (4.00-5.40); WHITE BLOOD COUNT 4.4 10^3/uL (4.0-10.0)
[2019-11-08] MEDS ORDERED: ACETAMINOPHEN 1000MG 100ML IV BTL (OFIRMEV) (J0131 PER 10MG) As Ordered ONE (11:20)
[2019-11-08] MEDS ORDERED: fentaNYL 100 MCG/2 ML INJECTION (J3010) As Ordered ONE ×2 (11:25→13:06)
[2019-11-08] MEDS ORDERED: ROCURONIUM BROMIDE 50 MG/5 ML VIAL As Ordered ONE (11:50)
[2019-11-08] MEDS ORDERED: ONDANSETRON 4MG/2ML VIAL (J2405) As Ordered ONE (13:05)
[2019-11-08] MEDS ORDERED: oxyCODONE 5MG TAB As Ordered ONE (13:05)
[2019-11-08] MEDS: fentaNYL 100 MCG/2 ML INJECTION (J3010) IV PRN ×4 (13:05→13:20)
[2019-11-08] MEDS: oxyCODONE 5MG TAB PO PRN ×2 (13:05→13:35)
[2019-11-08] MEDS ORDERED: ONDANSETRON 4MG/2ML VIAL (J2405) IV PRN (13:15)
[2019-11-08] MEDS ORDERED: LR 1,000 ML IV SCH ×2 (13:15)
[2019-11-08] MEDS ORDERED: PERCOCET 5MG/325MG TAB PO PRN (13:15)
[2019-11-08] MEDS ORDERED: OXYC1TAB23 PO (14:43)
[2019-11-08 15:20] VITALS: BP 118/66
--- NOTE | 2019-11-09 10:02 | RO ---
DATE OF OPERATION: 11/08/2019 PREOPERATIVE DIAGNOSIS: Large right ovarian teratoma. POSTOPERATIVE DIAGNOSES: Bilateral ovarian teratomas, 12 cm on the right, 3 cm on the left ovary. Normal uterus. Evidence of prior tubal sterilization. Omental adhesions to the midline in the upper abdomen, otherwise normal. PROCEDURE: SURGEON: Michael Bullard MD ANIMAL KEEPER: ANESTHESIA: DESCRIPTION OF PROCEDURE: Operative summary: Patient taken to the operating room where general endotracheal anesthesia was induced. She was prepped and draped in sterile fashion in the dorsal lithotomy position. A Bearden catheter was placed. A adSagelka uterine tenaculum was placed as a manipulator. Periumbilical incision was made with a scalpel. A Veress needle was placed through this incision. Intra-abdominal location of the Veress needle was assessed with the use of a saline-filled syringe. A pneumoperitoneum was created. The Veress needle was removed. An 11 mm trocar using NewCelliport was inserted. Two 5 mm suprapubic ports were placed under direct visualization. Grasping instrument was used to evaluate the adnexa. There appeared to be partial torsion of the right ovary around the utero-ovarian ligament. Utero-ovarian ligament was grasped, coagulized with LigaSure and incised. The infundibulopelvic (IP) ligament was then coagulated and incised. Specimen was freed. Left ovary was evaluated. It had been the intention to leave the left ovary alone if it was completely normal; however, there was evidence of dermoid cyst on the left ovary, and it would be removed in its entirety. The EndoShears with monopolar cautery was used to evaluate a cyst. A small puncture was made in a 3-4 cm cyst in the left ovary. Greenish adipose liquid emanated from the cyst. It was determined that the left ovary was without a doubt also a teratoma. Decision was made to remove the ovary on the left. The utero-ovarian ligament and IP ligaments were coagulated and incised with LigaSure. Both specimens were placed in a large Endo Catch bag and removed through the abdomen. The cysts were drained extracorporeally. Suction was used to suction the material coming from the cyst. There was no spillage of material into the abdomen at all. The fascia of the umbilical port was closed with #0 Vicryl suture. The skin of all ports was closed with #4-0 Monocryl subcuticular sutures. Sponge, instrument, and needle counts were correct. The patient was extubated and went to recovery room.
== END 2019-11-08 15:30 | disposition home or self-care (01) ==
LOC: M SDC 09:47
PROVIDERS: ATTEND Specialist
DX: D27.0 Benign neoplasm of right ovary (principal); D27.1 Benign neoplasm of left ovary; N73.6 Female pelvic peritoneal adhesions (postinfective); Z98.84 Bariatric surgery status; D64.9 Anemia, unspecified; G43.909 Migraine, unspecified, not intractable, without status migrainosus
CPT/HCPCS: 36415; 58661; 85027; 88305; J0131; J1100; J1885; J2250; J2405; J2765; J3010

== ENCOUNTER → 2020-08-12 | Outpatient (REF) | payer OTHER ==
[~2020-08-12] MED LIST changes: +CYCL-707 PO; -CYCL10TA PO; -KETOROLAC 60 MG/2 ML VIAL (J1885) As Ordered ONE; -LIDOCAINE 2% INJ 100 MG/5 ML SDV (FOR ANES.) As Ordered ONE; -LR 1,000 ML IV ONE; -METOCLOPRAMIDE INJ 10MG/2ML VIAL (J2765) As Ordered ONE; -MIDAZOLAM INJ 2 MG/2 ML VIAL (J2250) As Ordered ONE; -ONDANSETRON 4MG/2ML VIAL (J2405) As Ordered ONE; +OXYC1TAB23 PO; -ROCURONIUM BROMIDE 50 MG/5 ML VIAL As Ordered ONE; -SUGAMMADEX SODIUM 500 MG/5 ML VIAL (BRIDION) As Ordered ONE; -dexameTHASONE 4 MG/ML 1ML VIAL (J1100) As Ordered ONE; -fentaNYL 100 MCG/2 ML INJECTION (J3010) As Ordered ONE; -propofoL 200 MG/20 ML VIAL As Ordered ONE
[2020-08-12 17:16] LABS: BASO % 0.6 % (0.0-1.0); EOS # 0.2 10^3/uL (0.0-0.5); EOS % 3.7 % (0.0-3.0); HEMATOCRIT 44.5 % (36.0-47.0); HEMOGLOBIN 13.9 g/dl (12.0-15.5); LYMPH # 1.2 10^3/uL (1.5-5.0); LYMPH % 22.6 % (24.0-44.0); MEAN CORPUSCULAR HEMOGLOBIN 25.6 pg (27.0-33.0); MEAN CORPUSCULAR HGB CONC 31.2 g/dl (32.0-36.5); MONO # 0.4 10^3/uL (0.0-0.8); MONO % 6.8 % (0.0-5.0); NEUTROPHILS # 3.6 10^3/uL (1.5-8.5); NEUTROPHILS % 65.9 % (36.0-66.0); PLATELET COUNT, AUTOMATED 291 10^3/uL (150-450); RED BLOOD COUNT 5.43 10^6/uL (4.00-5.40); WHITE BLOOD COUNT 5.4 10^3/uL (4.0-10.0)
[2020-08-12 17:26] LABS: HEMOGLOBIN A1c 6.4 %
[2020-08-12 17:35] LABS: ALBUMIN 3.6 GM/DL (3.2-5.2); ALT/SGPT 31 U/L (12-78); BILIRUBIN,TOTAL 0.6 MG/DL (0.2-1.0); BLOOD UREA NITROGEN 12 MG/DL (7-18); CALCIUM LEVEL 9.7 MG/DL (8.5-10.1); CARBON DIOXIDE LEVEL 28 MEQ/L (21-32); CHLORIDE LEVEL 104 MEQ/L (98-107); CHOLESTEROL LEVEL 224 MG/DL (<200); CREATININE FOR GFR 0.82 MG/DL (0.55-1.30); FREE T4 0.95 NG/DL (0.76-1.46); GLOMERULAR FILTRATION RATE > 60.0 (>58); GLUCOSE, FASTING 120 MG/DL (70-100); HDL CHOLESTEROL 64 MG/DL (>40); LDL CHOLESTEROL 122 MG/DL (<100); NON-HDL-C 160 MG/DL; POTASSIUM SERUM 4.3 MEQ/L (3.5-5.1); SODIUM LEVEL 138 MEQ/L (136-145); TOTAL PROTEIN 7.9 GM/DL (6.4-8.2); TRIGLYCERIDES LEVEL 191 MG/DL (<150)
[2020-08-12 17:36] LABS: TOTAL 25(OH) VITAMIN D 11.4 NG/ML (30.0-100.0)
== END ==
LOC: M LAB REF 16:25
PROVIDERS: ATTEND Nurse Practitioner Family
DX: I10 Essential (primary) hypertension (principal); D64.9 Anemia, unspecified; R10.9 Unspecified abdominal pain

== ENCOUNTER → 2020-09-07 | Outpatient (CLI) | payer SELFPAY | LOC: M LABSMTC 10:15 | PROVIDERS: ATTEND Pediatrics | DX: Z20.828 Contact with and (suspected) exposure to other viral communicable diseases (principal) ==

== ENCOUNTER → 2020-11-09 | Outpatient (CLI) | payer OTHER | LOC: M LABSMTC 10:00 | PROVIDERS: ATTEND Anesthesiology | DX: Z01.812 Encounter for preprocedural laboratory examination (principal); Z20.822 Contact with and (suspected) exposure to COVID-19 ==

== ENCOUNTER 2020-11-14 10:14 | Day surgery (SDC) | payer OTHER ==
[~2020-11-14] VITALS: Ht 157.5 cm; Wt 93.4 kg
[~2020-11-14 10:14] MED LIST changes: +NS 1,000 ML IV ONE
--- OUTSIDE RECORDS SUMMARY | 2020-11-14 10:19 | CCD | Continuity of Care Document ---
Author Author Patricia STINSON M.D. Organization Unknown Address [address] [place] [id number] Phone [phone] Care Team Providers Care Assistant Professor Of Biology Name Role Phone Laura Alan AUTM Paul Tuttle M.D. AUTM [phone] Problems Description No Information Available Social History Type Date Description Comments Sex Unknown ETOH Use 1 A Day Tobacco Use Start: Unknown Non Smoker Allergies, Adverse Reactions, Alerts Description No Known Drug Allergies Medications Active Medications SIG Qnty Indications Ordering Provide r Date Loratadine 10mg Tablets 1tab po qd Unknown Cetirizine HCL 10mg Tablets 1tab po qd Unknown Immunizations Description No Information Available Vital Signs Date Vital Result Comment 09/17/2020 2:49pm BP Systolic 136 mmHg BP Diastolic 72 mmHg Height 62 inches 5'2" Weight 207.00 lb BMI (Body Mass Index) 37.9 kg/m2 [place] Body Weight 110 lb Weight 93.895 kg BSA (Body Surface Area) 1.94 m2 Results Description No Information Available Procedures Description No Information Available Medical Devices Description No Information Available Encounters Description No Information Available Assessments Description No Information Available Plan of Treatment No Information Available Functional Status Description No Information Available Mental Status Description No Information Available Referrals Refer to Reason for Referral Status Appt Date Aldo Stinson M.D. abdominal pain, bloating Created 09/17/[address] [place] [id number] [phone]
--- OUTSIDE RECORDS SUMMARY | 2020-11-14 10:19 | CCD | Continuity of Care Document ---
Author Author Patricia CHACON M.D. Organization Unknown Address [address] [place] [address] Phone [phone] Care Team Providers Care Vocational Evaluator Name Role Phone Dawn Barros David AUTM [phone] Problems Active Problems Provider Date Mild persistent asthma Onset: 04/05/2018 Allergic rhinitis due to house dust mite Christo Chacon M.D. Onset: 08/01/2020 Note: 3+ reaction to dust mite on intrad ermal test completed in 2018. Urticaria DYLON Morton Onset: 06/08/2019 Angioedema Onset: 04/05/2018 Vocal cord dysfunction Onset: 04/05/2018 Obstructive sleep apnea syndrome Christo Chacon M.D. O nset: 10/17/2020 Social History Type Date Description Comments Sex Unknown Tobacco Use Reviewed: 10/17/20 Patient has never smoked Smoking Status Reviewed: 10/17/20 Patient has never smoked Allergies, Adverse Reactions, Alerts Description No Known Drug Allergies Medications Active Medications SIG Qnty Indications Ordering Provide r Date Nebulizer Misc To be used with albuterol solution. 1Machine Christo Chacon M.D. 2020 Nebulizer Kit/Tubing/Mouthpiece K it to be used with nebulizer 1unkristi Chacon M.D. Arnuity Ellipta 100mcg/Act Aerosol inhale 1 puff (100 mcg) by inhalation route once daily at the same time each day 30units J45.30 Christo Chacon M.D. 10/17/2020 Doxepin HCL 25mg Capsules take 1 capsule by mouth every night for 1 week. increase to 2 capsules at night after a week 60caps L50.8 Christo Chacon M.D. 10/17/2020 Hydroxyzine HCL 25mg Tablets take 1-2 tablet by mouth every 4 hours as needed for hives 90tabs L50.8 Christo Chacon M.D. 10/17/2020 Albuterol Sulfate HFA 108(90Base) mcg/Act Aerosol inhale two puffs by mouth every 6 hours as needed for bronchospasm 8.500gm J45.30 Christo Chacon M.D. 05/25/2020 Cetirizine HCL 10mg Tablets take 1 tablet by mouth daily every morning 30tabs L50.8 Christo Chacon M.D. 06/08/2019 Ibuprofen 800mg Tablets Take 1 talbet as needed Laura Alan FNP 00/00/00 00 Vitamin D (Ergocalciferol) 1.25mg (10912 Ut) Capsules Laura Alan FNP 00/0 Immunizations Description No Information Available Vital Signs Date Vital Result Comment 10/17/2020 10:13am Weight 209.50 lb Height 62 inches 5'2" Heart Rate 72 /min Respiratory Rate 18 /min BP Systolic 114 mmHg BP Diastolic 76 mmHg BMI (Body Mass Index) 38.3 kg/m2 05/03/2018 3:55pm BMI (Body Mass Index) 36.63 kg/m2 Results Description No Information Available Procedures Date Code Description Status 10/17/2020 49611 Bronchodilation Resp onsiveness Spirometry Pre/Post Bronchodil Adm Completed Medical Devices Description No Information Available Encounters Type Date Location Provider Dx Diagnosis Office Visit 10/17/2020 10:45a Main Office Christo Chacon M.D. J45.30 Mild persistent asthma, uncomplicated G47.33 Obstructive sleep apnea (christopher lt) (pediatric) L50.8 Other urticaria T63.481A Toxic effect of venom of art hropod, accidental, init J30.89 Other allergic rhinitis Assessments Date Code Description Provider 10/17/2020 J45.30 Mild persistent asthma Christo cervantes M.D. 10/17/2020 G47.33 Obstructive sleep apnea (adult) Christo Chacon M.D. 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 10/17/2020 T63.481A Toxic effect of veno m of other arthropod, accidental (unintentional), initial encounter Christo Chacon M.D. 10/17/2020 J30.89 Allergic rhinitis due to dust mi jeromy Christo Chacon M.D. Plan of Treatment Future Appointment(s):* 01/21/2021 10:45 am - Christo Chacon M.D. at Main Office 10/17/2020 - Christo Chacon M.D.* J45.30 Mild persistent asthma* New Medication:* Arnuity Ellipta 100 mcg/Act - inhale 1 puff (100 mcg) by inhalation route once daily at the same time each day * Recommendations:* Symptoms have been worse since she developed COVID in August 2020. We will restart her on a low dose ICS today. She can continue to use ventolin as needed every 4-6 hours for cough, wheeze or SOB. May use Ventolin with exercise, 15-30 minutes prior to activity as needed. Will send in a nebulizer which she can use instead of the MDI if she has more symptoms. Sleep apnea seems to be contributing to suboptimal control so refer to Pulmonology for sleep study. * G47.33 Obstructive sleep apnea (adult)* Referral:* Ermias Lunsford, Pulmonary Diseases * Recommendations:* Sleep apnea is likely contributing to suboptimal control and symptoms that she develops at night (waking up unable to catch her breath). She does have an elevated BMI which puts her at higher risk. We will refer her to pulmonology for a sleep study to evaluate for sleep apnea and set her up with a CPAP if needed. 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 increase to 2 capsules at night after a week * Hydroxyzine HCL 25 mg - take 1-2 tablet by mouth every 4 hours as needed for hives * Recommendations:* She is currently taking two long acting antihistamine as well as benadryl as needed. Will maintain her on Zyrtec every morning. We will add hydroxyzine during the day as needed and as well as titrate her up on doxepin at night. This should help better control her symptoms. * T63.481A Toxic effect of venom of other arthropod, accidental (unintentional), initial encounter* Recommendations:* Should review her environment for possible insects (fleas, mites, bed bugs). Should not scratch if possible. Doxepin should help with itching and obsessive scratching. * J30.89 Allergic rhinitis due to dust mites* Recommendations:* Symptoms are well controlled. She is not using any nasal spray. She is taking the antihistamines daily for urticaria as discussed above. Avoidance measures revi ewed. May need to restart Flonase if symptoms keep increasing. I reviewed effective allergy avoidance measures for dust mites still. * All * Comments:* Time spent:Face to face and discussion: 40 minutesDocumenting the visit: 10 minutes * Follow up:* 3 months. Sooner if needed. Functional Status Description No Information Available Mental Status Description No Information Available Referrals Refer to Reason for Referral Status Appt Date Ermias Lunsford Symptoms consistent with sle ep apnea. Frequent awakenings when "unable to catch her breath". On Arnuity for mild persistent asthma. Please evaluate. Thank you! Created [address] [place] [address] [phone]
--- OUTSIDE RECORDS SUMMARY | 2020-11-14 10:19 | CCD | Continuity of Care Document ---
Author Author Patricia CHACON M.D. Organization Unknown Address [address], [address], [place] [address] Phone [phone] Care Team Providers Care Desizing Machine Offbearer Name Role Phone Juan ManuelvenessaDawn Unavailable Problems Active Problems Provider Date Mild persistent asthma Onset: 04/05/2018 Allergic rhinitis due to house dust mite Christo Chacon M.D. Onset: 08/01/2020 Note: 3+ reaction to dust mite on intrad ermal test completed in 2018. Urticaria DYLON Morton Onset: 06/08/2019 Angioedema Onset: 04/05/2018 Vocal cord dysfunction Onset: 04/05/2018 Social History Type Date Description Comments Sex Unknown Tobacco Use Reviewed: 10/17/20 Patient has never smoked Smoking Status Reviewed: 10/17/20 Patient has never smoked Allergies, Adverse Reactions, Alerts Description No Known Drug Allergies Medications Active Medications SIG Qnty Indications Ordering Provide r Date Nebulizer Misc To be used with albuterol solution. 1Machinorah Chacon M.D. 2020 Nebulizer Kit/Tubing/Mouthpiece K it to be used with nebulizer 1units Christo Chacon M.D. Albuterol Sulfate HFA 108(90Base) mcg/Act Aerosol inhale two puffs by mouth every 6 hours as needed for bronchospasm 8.500gm J45.30 Christo Chacon M.D. 05/25/2020 Cetirizine HCL 10mg Tablets take 1 tablet by mouth daily for hives 30tabs L50.8 Freddie Post 06/08/2019 Claritin 10mg Capsules take 1 [facility] Christo Chacon M.D. Ibuprofen 800mg Tablets Take 1 talbet as needed Laura Alan FNP Vitamin D (Ergocalciferol) 1.25mg (83446 Ut) Capsules Laura Alan FNP 00/0 Immunizations Description No Information Available Vital Signs Date Vital Result Comment 10/17/2020 10:13am Weight 209.50 lb Height 62 inches 5'2" Heart Rate 72 /min Respiratory Rate 18 /min BP Systolic 114 mmHg BP Diastolic 76 mmHg BMI (Body Mass Index) 38.3 kg/m2 05/03/2018 3:55pm BMI (Body Mass Index) 36.63 kg/m2 Results Description No Information Available Procedures Description No Information Available Medical Devices Description No Information Available Encounters Description No Information Available Assessments Date Code Description Provider 10/17/2020 J45.30 Mild persistent asthma Christo cervantes M.D. 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 10/17/2020 R06.00 Dyspnea, unspecified Christo gayle M.D. 10/17/2020 J30.89 Allergic rhinitis due to dust mi jeromy Christo Chacon M.D. Plan of Treatment 10/17/2020 - Christo Chacon M.D.* J45.30 Mild persistent asthma* Comments: * ACT score = 11/25. PFT shows restriction without reversibility. * Recommendations:* Symptoms have been worse since [...] the MDI if she has more symptoms. 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 We will add hydroxyzine during the day as needed and as well as titrate her up on doxepin at night. This should help better control her symptoms. The papular hives she has could likely be due to biting from mites/bigs. She does not have any pets in the home. I advised to check their house and bed for any mites or bugs that could be biting her. * R06.00 Dyspnea, unspecified* Comments:* Paroxysmal nocturnal dyspnea * Recommendations:* It is possible this is due to sleep apnea rather than her asthma waking her up at night. She does have an elevated BMI which puts her at higher risk. We will refer her to pulmonology for a sleep study to evaluate for sleep apnea and set her up with a CPAP if needed. * J30.89 Allergic rhinitis due to dust mites* Comments:* Skin test shows positive to dust mites * Recommendations:* Symptoms are well controlled. She is not using any nasal spray. She is taking the antihistamines daily for urticaria as discussed above. Avoidance measures reviewed. * All * New Medication:* Nebulizer - To be used with albuterol solution. * Nebulizer Kit/Tubing/Mouthpiece - to be used with nebulizer Functional Status Description No Information Available Mental Status Description No Information Available Referrals Description No Information Available
--- OUTSIDE RECORDS SUMMARY | 2020-11-14 10:19 | CCD ---
Author Organization Unknown Address [address] [place] [address] Phone [phone] Care Team Providers Care Special Education Professional Name Role Phone Laura Alan Unavailable Unavailable Allergies None recorded. Medications Name Status Start Date Stop Date albuterol sulfate HFA 90 mcg/actuation aerosol inhaler Active Not available amoxicillin 875 mg-potassium clavulanate 125 mg tablet Completed 07/31/2020 Bactrim DS 800 mg-160 mg tablet Take 1 tablet every 12 hours by oral route as directed for 10 days. Active Not available cholecalciferol (vitamin D3) 25 mcg (1,0 00 unit) tablet TAKE ONE TABLET BY MOUTH EVERY DAY AFTER 50K UNIT CAPS HAVE BEEN FINISHED Completed 07/31/2020 ferrous sulfate 325 mg (65 mg iron) tabl et TAKE ONE TABLET BY MOUTH TWICE A DAY Completed ibuprofen 800 mg tablet Active Not avai lable metformin ER 500 mg tablet,extended rele ase 24 hr TAKE ONE TABLET BY MOUTH THREE TIMES A DAY Completed 07/31/2020 mupirocin 2 % topical ointment APPLY A SMALL AMOUNT TO THE AFFECTED AREA BY TOPICAL ROUTE 3 TIMES PER DAY Active Not available oxycodone-acetaminophen 5 mg-325 mg tablet Completed 07/31/2020 Prempro 0.625 mg-5 mg tablet TAKE ONE TABLET BY MOUTH EVERY DAY Completed 12/2019 Vitamin D2 1,250 mcg (50,000 unit) capsu le Take 1 capsule every week by oral route as directed. Active Not available Problems Name Status Onset Date Source Degeneration of Lumbar Intervertebral Disc Active 01/17 History Lumbosacral Radiculopathy Active 01/17/2013 Histor y Disorder of Upper Extremity Active 01/17/2013 Hist ory Pain in Right Knee Active 01/17/[address] Concept Active 01/17/[address] Concept Active 01/17/2013 History Finding of Lower Limb Active 05/30/2013 History Vitamin D Deficiency Active 06/29/2013 History Heart Murmur Active 06/29/2013 History Venous Varices Active 06/29/2013 History Evaluation Finding Active 01/30/2014 History General Finding of Observation of Patient Active 2013 History Iron Deficiency Anemia Secondary to Inadequate Dietary Iron Intake Active 02/03/2018 History Emotional State Finding Active 02/03/2018 History Clinical Finding Active 04/01/2018 History Tooth Finding Active 01/02/2019 History Clinical Finding Active 01/02/2019 History Dental Caries on Smooth Surface Penetrating into Pulp Active 02/13/2019 History Acute Bronchitis Active 03/17/2019 History Anemia Active 06/26/2019 History Melena Active 06/26/2019 History Screening for Malignant Neoplasm of Cervix Active 06/26 History Iron Deficiency Anemia Active 08/02/2019 History Cyst of Ovary Active 10/03/2019 History Viral Hepatitis C Active History Asthma Active History Clinical Finding Active History Procedures Notes: , Bladder Stones, Tubal Ligation, Back Surgery-4,5, gastric bipass, vericose veins, carpel tunnel both wrists Results Lab Results Date Name Specimen Result Interpretation Description Value Range Status Address 08/12/2020 CBC W/ Auto Diff Blood venous Normal White Blood C ount 5.4 10 4.0-10.0 10 [facility]: [address] [facility] Blood venous High Red Blood Count 5.43 10 4.00- 5.40 10 [facility]: [address] [facility] Blood venous Normal Hemoglobin 13.9 g/dL 12.0-15. 5 g/dL [facility]: [address] [facility] Blood venous Normal Hematocrit 44.5 % 36.0-47.0 % [facility]: [address] [facility] Blood venous Normal Mean Corpuscular Volume 82.0 fL 80.0-96.0 fL [facility]: [address] [facility] Blood venous Low Mean Corpuscular Hemoglob in 25.6 pg 27.0-33.0 pg [facility]: [address] [facility] Blood venous Low Mean Corpuscular HGB Conc 31.2 g/dL 32.0-36.5 g/dL [facility]: [address] [facility] Blood venous Normal Red Cell Distribution Wid th 13.2 % 11.5-14.5 % [facility]: [address] [place] [address] Blood venous Normal Platelet Count, Automated 291 10 150-450 10 [facility]: [address] [place] [address] Blood venous Normal Neutrophils % 65.9 % 36.0-66. 0 % [facility]: [address] [place] [address] Blood venous Low Lymph % 22.6 % 24.0-44.0 % [facility]: [address] [place] [address] Blood venous High [place] % 6.8 % 0.0-5.0 % [facility]: [address] [place] [address] Blood venous High Eos % 3.7 % 0.0-3.0 % [facility]: [address] [place] [address] Blood venous Normal Baso % 0.6 % 0.0-1.0 % [facility]: [address] [place] [address] Blood venous Normal Immature Granulocyte % 0.4 % 0-3.0 % [facility]: [address] [place] [address] Blood venous Normal Nucleated Red Blood Cell % 0. 0 % 0-0 % [facility]: [address] [place] [address] Blood venous Normal Neutrophils # 3.6 10 1.5-8.5 10 [facility]: [address] [place] [address] Blood venous Low Lymph # 1.2 10 1.5-5.0 10 [facility]: [address] [place] [address] Blood venous Normal [place] # 0.4 10 0.0-0.8 10 [facility]: [address] [place] [address] Blood venous Normal Eos # 0.2 10 0.0-0.5 10 [facility]: [address] [place] [address] Blood venous Normal Baso # 0.0 10 0.0-0.2 10 [facility]: [address] [place] [address] 08/12/2020 HbA1C (Hemoglobin a1C), Blood Blood venous Normal Hemoglobin a1C 6.4 % [facility]: [address] [place] [address] Blood venous High Estimated Average Glucose 137 mg/dL 60-110 mg/dL [facility]: [address] [place] [address] 08/12/2020 CMP, Serum or Plasma Blood venous High Glu cose, Fasting 120 mg/dL 70-100 mg/dL [facility] nter: [address] [place] [address] Blood venous Normal Blood Urea Nitrogen 12 mg/dL 7-18 mg/dL [facility]: [address] [place] [address] Blood venous Normal Creatinine for GFR 0.82 mg/dL 0.55-1.30 mg/dL [facility]: [address] [place] [address] Blood venous Normal Glomerular Filtration Rate > 60.0 >58 [facility]: [address] [place] [address] Blood venous Normal Sodium Level 138 mEq/L 136-14 5 mEq/L [facility]: [address] [place] [address] Blood venous Normal Potassium Serum 4.3 mEq/L 3.5 -5.1 mEq/L [facility]: [address] [place] [address] Blood venous Normal Chloride Level 104 mEq/L 98-1 07 mEq/L [facility]: [address] [place] [address] Blood venous Normal Carbon Dioxide Level 28 mEq/L 21-32 mEq/L [facility]: [address] [place] [address] Blood venous Low Anion Gap 6 mEq/L 8-16 mEq/L [facility]: [address] [place] [address] Blood venous Normal Calcium Level 9.7 mg/dL 8.5-1 0.1 mg/dL [facility]: [address] [facility] Blood venous Normal AST/SGOT 30 U/L 7-37 U/L [facility]: [address] [place] [address] Blood venous Normal ALT/SGPT 31 U/L 12-78 U/L [facility]: [address] [place] [address] Blood venous High Alkaline Phosphatase 131 U/L 45-117 U/L [facility]: [address] [place] [address] Blood venous Normal Bilirubin,total 0.6 mg/dL 0.2 -1.0 mg/dL [facility]: [address] [place] [address] Blood venous Normal Total Protein 7.9 gm/dL 6.4-8 .2 gm/dL [facility]: [address] [place] [address] Blood venous Normal Albumin 3.6 gm/dL 3.2-5.2 gm/ dL [facility]: [address] [place] [address] Blood venous Low Albumin/globulin Ratio 0.8 1.2-2.2 [facility]: [address] [place] [address] 08/12/2020 Lipid Panel, Blood Blood venous High Trigl ycerides Level 191 mg/dL <150 mg/dL [facility] nter: [address] [place] [address] Blood venous High Cholesterol Level 224 mg/dL < 200 mg/dL [facility]: [address] [place] [address] Blood venous Normal HDL Cholesterol 64 mg/dL >40 mg/dL [facility]: [address] [place] [address] Blood venous High LDL Cholesterol 122 mg/dL <10 0 mg/dL [facility]: [address] [place] [address] Blood venous Normal Non-hdl-c 160 mg/dL [facility]: [address] [place] [address] Blood venous Normal Cholesterol Risk Ratio 3.500 <5 [facility]: [address] [place] [address] 08/12/2020 TSH + Free T4, Serum Blood venous Normal Thyroid Stimulating Hormone 2.220 uIU/mL 0.358-3.740 uIU/mL [facility]: [address] [place] [address] Blood venous Normal Free T4 0.95 NG/dL 0.76-1.46 NG/dL [facility]: [address] [place] [address] 08/12/2020 Vitamin D, 25-Hydroxy, Total, Serum Blood bag Low Total 25(Oh) Vitamin D 11.4 NG/mL 30.0-100.0 NG/mL [facility]: [address] [place] [address] Past Encounters 08/19/2020 Abscess of Axilla; Patient Asked to Attend; Hyperlipidemia; Vitamin D Deficiency; Type 2 Diabetes Mellitus without Complication EZEQUIEL Moscoso-[facility]: [address] [place] [address], Ph. 08/12/2020 Laura Alan [facility]: [address] [place] [address], Ph. 07/31/2020 Chronic Pain; Hypertensive Disorder Laura Alan [facility]: [address] [place] [address], Ph. Social History Tobacco Smoking Status Never Smoker Vaccine List None recorded. Plan of Care Reminders Provider Appointments None recorded. Lab None recorded. Referral None recorded. Procedures None recorded. Surgeries None recorded. Imaging None recorded. Vitals 08/19/2020 04:40PM ESTABLISHED [id number] Height Weight BMI Blood Pressure 63 in 205 lbs 6.4 oz 36.4 kg/m2 119/82 mm[Hg ] 07/31/2020 03:00PM ESTABLISHED [id number] Height Weight BMI Blood Pressure 63 in 205 lbs 9.6 oz 36.4 kg/m2 (1) 90/42 mm [Hg] (2) 114/82 mm[Hg] 10/03/2019 Height Weight Blood Pressure 63 in 198 lbs 3.04 oz 111/73 mm[Hg] 06/26/2019 Height Weight Blood Pressure 63 in 187 lbs 115/74 mm[Hg] 03/17/2019 Height Weight Blood Pressure 63 in 198 lbs 109/70 mm[Hg] 01/02/2019 Height Weight Blood Pressure 63 in 200 lbs 105/70 mm[Hg]
--- OUTSIDE RECORDS SUMMARY | 2020-11-14 10:20 | CCD ---
Author Author [facility] Address Unknown Phone Unavailable Support Name Relationship Address Phone Rajeev Jenkins Next Of Kin Unknown Unavailable DISABLED Next Of Kin Unknown Unavailable Waqas NIEVES, Laura Next Of Kin [address] [place] [address] Joe LAZO, Kenyatta Next Of Kin [address] [place], [place] [id number] Cole NIEVES, Rena Next Of Kin [address] [place] [address] Garrick NIEVES, Kay Next Of Kin [address] [place] [address] ROBERT JENKINS Next Of Kin [address] [place] [address] SANDHYAGIANNI Next Of Kin [address] [place] [address] GIANNI JENKINS Next Of Kin [address] [place] [address] EZEQUIEL Galvan, Rena Next Of Kin [address] [place] [address] 315 EZEQUIEL Mccauley, Kay Next Of Kin [address] [place] [address] Nataly NIEVES, [place] Next Of Kin [address] [place] [address] Michelle ANP-BC, Preethi Next Of Kin [address] [place] [phone] RAJEEV JENKINS Next Of Kin [address] [place] [address] RAJEEV LYNN Next Of Kin [address] [place] [address] UE Next Of Kin Unknown Unavailable SHARIFA HARDIK Next Of Kin [address] [facility] [place] [address] GIANNI JENKINS [address] [place] [address] Unavailable Care Team Providers Care Metrology Engineer Name Role Phone TOVA CHACON MD Unavailable Unavailable CHROSTTOVA HARPER MD Unavailable Unavailable CHROSTTOVA HARPER MD Unavailable Unavailable CHROSTTOVA HARPER MD Unavailable Unavailable CHROSTOWSKITOVA MD Unavailable Unavailable CHROSTOWSKITOVA MD Unavailable Unavailable CHROSTOWSKITOVA MD Unavailable Unavailable CHROSTOWSKITOVA MD Unavailable Unavailable CHROSTOWSKITOVA MD Unavailable Unavailable CHROSTOWSKITOVA MD Unavailable Unavailable CHROSTOWSKITOVA MD Unavailable Unavailable CHROSTOWSKITOVA MD Unavailable Unavailable CHROSTOWSKITOVA MD Unavailable Unavailable CHROSTOWSKITOVA MD Unavailable Unavailable CHROSTTOVA HARPER MD Unavailable Unavailable CHROSTTOVA HARPER MD Unavailable Unavailable CHROSTOWSKITOVA MD Unavailable Unavailable CHROSTOWSKIKIMMYTOVA MD Unavailable Unavailable CHROSTOWSKIKIMMYTOVA MD Unavailable Unavailable CHROSTOWSKIKIMMYTOVA MD Unavailable Unavailable CHROSTOWSKITOVA MD Unavailable Unavailable CHROSTOWSKITOVA MD Unavailable Unavailable CHROSTOWSKITOVA MD Unavailable Unavailable CHROSTOWSKIKIMMYTOVA MD Unavailable Unavailable CHROSTOWSKIKIMMYTOVA MD Unavailable Unavailable CHROSTOWSKIKIMMYTOVA MD Unavailable Unavailable CHROSTOWSKITOVA MD Unavailable Unavailable CHROSTOWSKITOVA MD Unavailable Unavailable CHROSTOWSKITOVA MD Unavailable Unavailable CHROSTOWSKIKIMMYTOVA MD Unavailable Unavailable CHROSTOWSKI TOVA MD Unavailable Unavailable CHROSTOWSKIKIMMYTOVA MD Unavailable Unavailable CHROSTOWSKIKIMMYTOVA MD Unavailable Unavailable CHROSTOWSKITOVA MD Unavailable Unavailable CHROSTOWSKIKIMMYTOVA MD Unavailable Unavailable CHROSTOWSKITOVA MD Unavailable Unavailable CHROSTOWSKIKIMMYTOVA MD Unavailable Unavailable CHROSTOWSKIKIMMYTOVA MD Unavailable Unavailable CHROSTOWSKIKIMMYTOVA MD Unavailable Unavailable CHROSTOWSKIKIMMYTOVA MD Unavailable Unavailable ALIASES , DEFAULT / GENERIC / UNKNOWN PROVIDER * Unavailable Unavailable ALIASES , DEFAULT / GENERIC / UNKNOWN PROVIDER * Unavailable Unavailable ALIASES , DEFAULT / GENERIC / UNKNOWN PROVIDER * Unavailable Unavailable ALIASES , DEFAULT / GENERIC / UNKNOWN PROVIDER * Unavailable Unavailable ALIASES , DEFAULT / GENERIC / UNKNOWN PROVIDER * Unavailable Unavailable ALIASES , DEFAULT / GENERIC / UNKNOWN PROVIDER * Unavailable Unavailable ALIASES , DEFAULT / GENERIC / UNKNOWN PROVIDER * Unavailable Unavailable ALIASES , DEFAULT / GENERIC / UNKNOWN PROVIDER * Unavailable Unavailable ALIASES , DEFAULT / GENERIC / UNKNOWN PROVIDER * Unavailable Unavailable ALIASES , DEFAULT / GENERIC / UNKNOWN PROVIDER * Unavailable Unavailable ALIASES , DEFAULT / GENERIC / UNKNOWN PROVIDER * Unavailable Unavailable ALIASES , DEFAULT / GENERIC / UNKNOWN PROVIDER * Unavailable Unavailable ALIASES , DEFAULT / GENERIC / UNKNOWN PROVIDER * Unavailable Unavailable ALIASES , DEFAULT / GENERIC / UNKNOWN PROVIDER * Unavailable Unavailable ALIASES , DEFAULT / GENERIC / UNKNOWN PROVIDER * Unavailable Unavailable ALIASES , DEFAULT / GENERIC / UNKNOWN PROVIDER * Unavailable Unavailable ALIASES , DEFAULT / GENERIC / UNKNOWN PROVIDER * Unavailable Unavailable ALIASES , DEFAULT / GENERIC / UNKNOWN PROVIDER * Unavailable Unavailable ALIASES , DEFAULT / GENERIC / UNKNOWN PROVIDER * Unavailable Unavailable ALIASES , DEFAULT / GENERIC / UNKNOWN PROVIDER * Unavailable Unavailable ALIASES , DEFAULT / GENERIC / UNKNOWN PROVIDER * Unavailable Unavailable ALIASES , DEFAULT / GENERIC / UNKNOWN PROVIDER * Unavailable Unavailable ALIASES , DEFAULT / GENERIC / UNKNOWN PROVIDER * Unavailable Unavailable ALIASES , DEFAULT / GENERIC / UNKNOWN PROVIDER * Unavailable Unavailable ALIASES , DEFAULT / GENERIC / UNKNOWN PROVIDER * Unavailable Unavailable ALIASES , DEFAULT / GENERIC / UNKNOWN PROVIDER * Unavailable Unavailable ALIASES , DEFAULT / GENERIC / UNKNOWN PROVIDER * Unavailable Unavailable ALIASES , DEFAULT / GENERIC / UNKNOWN PROVIDER * Unavailable Unavailable ALIASES , DEFAULT / GENERIC / UNKNOWN PROVIDER * Unavailable Unavailable ALIASES , DEFAULT / GENERIC / UNKNOWN PROVIDER * Unavailable Unavailable ALIASES , DEFAULT / GENERIC / UNKNOWN PROVIDER * Unavailable Unavailable ALIASES , DEFAULT / GENERIC / UNKNOWN PROVIDER * Unavailable Unavailable ALIASES , DEFAULT / GENERIC / UNKNOWN PROVIDER * Unavailable Unavailable ALIASES , DEFAULT / GENERIC / UNKNOWN PROVIDER * Unavailable Unavailable ALIASES , DEFAULT / GENERIC / UNKNOWN PROVIDER * Unavailable Unavailable ALIASES , DEFAULT / GENERIC / UNKNOWN PROVIDER * Unavailable Unavailable ALIASES , DEFAULT / GENERIC / UNKNOWN PROVIDER * Unavailable Unavailable ALIASES , DEFAULT / GENERIC / UNKNOWN PROVIDER * Unavailable Unavailable ALIASES , DEFAULT / GENERIC / UNKNOWN PROVIDER * Unavailable Unavailable ALIASES , DEFAULT / GENERIC / UNKNOWN PROVIDER * Unavailable Unavailable ALIASES , DEFAULT / GENERIC / UNKNOWN PROVIDER * Unavailable Unavailable ALIASES , DEFAULT / GENERIC / UNKNOWN PROVIDER * Unavailable Unavailable ALIASES , DEFAULT / GENERIC / UNKNOWN PROVIDER * Unavailable Unavailable ALIASES , DEFAULT / GENERIC / UNKNOWN PROVIDER * Unavailable Unavailable ALIASES , DEFAULT / GENERIC / UNKNOWN PROVIDER * Unavailable Unavailable ALIASES , DEFAULT / GENERIC / UNKNOWN PROVIDER * Unavailable Unavailable ALIASES , DEFAULT / GENERIC / UNKNOWN PROVIDER * Unavailable Unavailable ALIASES , DEFAULT / GENERIC / UNKNOWN PROVIDER * Unavailable Unavailable ALIASES , DEFAULT / GENERIC / UNKNOWN PROVIDER * Unavailable Unavailable ALIASES , DEFAULT / GENERIC / UNKNOWN PROVIDER * Unavailable Unavailable ALIASES , DEFAULT / GENERIC / UNKNOWN PROVIDER * Unavailable Unavailable ALIASES , DEFAULT / GENERIC / UNKNOWN PROVIDER * Unavailable Unavailable ALIASES , DEFAULT / GENERIC / UNKNOWN PROVIDER * Unavailable Unavailable [employer] [place], A Laura MANAGER STATISTICS Unavailable Unavailable [employer] [place], A Laura MANAGER STATISTICS Unavailable Unavailable [employer] [place], A Laura MANAGER STATISTICS Unavailable Unavailable [employer] [place], A Laura MANAGER STATISTICS Unavailable Unavailable [employer] [place], A Laura MANAGER STATISTICS Unavailable Unavailable [employer] [place], A Laura MANAGER STATISTICS Unavailable Unavailable [place], A Laura MANAGER STATISTICS Unavailable Unavailable [place], A Laura MANAGER STATISTICS Unavailable Unavailable [place], A Laura MANAGER STATISTICS Unavailable Unavailable [place], A Laura MANAGER STATISTICS Unavailable Unavailable [place], A Laura MANAGER STATISTICS Unavailable Unavailable [place], A Laura MANAGER STATISTICS Unavailable Unavailable [place], A Laura MANAGER STATISTICS Unavailable Unavailable [place], A Laura MANAGER STATISTICS Unavailable Unavailable [place], A Laura MANAGER STATISTICS Unavailable Unavailable [place], A Laura MANAGER STATISTICS Unavailable Unavailable [place], A Laura MANAGER STATISTICS Unavailable Unavailable [place], A Laura MANAGER STATISTICS Unavailable Unavailable [place], A Laura MANAGER STATISTICS Unavailable Unavailable [place], A Laura MANAGER STATISTICS Unavailable Unavailable [place], A Laura MANAGER STATISTICS Unavailable Unavailable [place], A Laura MANAGER STATISTICS Unavailable Unavailable [place], A Laura MANAGER STATISTICS Unavailable Unavailable [place], A Laura MANAGER STATISTICS Unavailable Unavailable [place], A Laura MANAGER STATISTICS Unavailable Unavailable [place], A Laura MANAGER STATISTICS Unavailable Unavailable [employer] [place], A Laura MANAGER STATISTICS Unavailable Unavailable [employer] [place], A Laura MANAGER STATISTICS Unavailable Unavailable NIRMAL ALTMAN PA Unavailable Unavailable NIRMAL ALTMAN PA Unavailable Unavailable MCELHERAN, NIRMAL PA Unavailable Unavailable MCELHERAN, NIRMAL PA Unavailable Unavailable MCELHERAN, NIRMAL PA Unavailable Unavailable MCELHERAN, NIRMAL PA Unavailable Unavailable MCELHERAN, NIRMAL PA Unavailable Unavailable MCELHERAN, NIRMAL PA Unavailable Unavailable MCELHERAN, NIRMAL PA Unavailable Unavailable MCELHERAN, NIRMAL PA Unavailable Unavailable MCELHERAN, NIRMAL PA Unavailable Unavailable MCELHERAN, NIRMAL PA Unavailable Unavailable MCELHERAN, NIRMAL PA Unavailable Unavailable MCELHERAN, NIRMAL PA Unavailable Unavailable MCELHERAN, NIRMAL PA Unavailable Unavailable MCELHERAN, NIRMAL PA Unavailable Unavailable MCELHERAN, NIRMAL PA Unavailable Unavailable MCELHERAN, NIRMAL PA Unavailable Unavailable MCELHERAN, NIRMAL PA Unavailable Unavailable MCELHERAN, NIRMAL PA Unavailable Unavailable MCELHERAN, NIRMAL PA Unavailable Unavailable MCELHERAN, NIRMAL PA Unavailable Unavailable MCELHERAN, NIRMAL PA Unavailable Unavailable MCELHERAN, INRMAL PA Unavailable Unavailable MCELHERAN, NIRMAL PA Unavailable Unavailable MCELHERAN, NIRMAL PA Unavailable Unavailable MCELHERAN, NIRMAL PA Unavailable Unavailable MCELHERAN, NIRMAL PA Unavailable Unavailable [employer] [place], Laura MANAGER STATISTICS MANAGER STATISTICS Unavailable Unavailable [employer] [place], A Laura MANAGER STATISTICS Unavailable Unavailable [employer] [place], A Laura MANAGER STATISTICS Unavailable Unavailable [place], A Laura MANAGER STATISTICS Unavailable Unavailable [place], A Laura MANAGER STATISTICS Unavailable Unavailable [place], A Laura MANAGER STATISTICS Unavailable Unavailable [place], A Laura MANAGER STATISTICS Unavailable Unavailable [place], A Laura MANAGER STATISTICS Unavailable Unavailable [place], A Laura MANAGER STATISTICS Unavailable Unavailable [place], A Laura MANAGER STATISTICS Unavailable Unavailable [place], A Laura MANAGER STATISTICS Unavailable Unavailable [place], A Laura MANAGER STATISTICS Unavailable Unavailable [place], A Laura MANAGER STATISTICS Unavailable Unavailable [place], A Laura MANAGER STATISTICS Unavailable Unavailable [place], A Laura MANAGER STATISTICS Unavailable Unavailable [place], A Laura MANAGER STATISTICS Unavailable Unavailable [place], A Laura MANAGER STATISTICS Unavailable Unavailable [place], A Laura MANAGER STATISTICS Unavailable Unavailable [place], A Laura MANAGER STATISTICS Unavailable Unavailable [place], A Laura MANAGER STATISTICS Unavailable Unavailable [place], A Laura MANAGER STATISTICS Unavailable Unavailable [place], A Laura MANAGER STATISTICS Unavailable Unavailable [place], A Laura MANAGER STATISTICS Unavailable Unavailable [place], A Laura MANAGER STATISTICS Unavailable Unavailable [place], A Laura MANAGER STATISTICS Unavailable Unavailable [employer] [place], A Laura MANAGER STATISTICS Unavailable Unavailable [employer] [place], A Laura MANAGER STATISTICS Unavailable Unavailable [employer] [place], A Laura MANAGER STATISTICS Unavailable Unavailable [place], A Laura MANAGER STATISTICS Unavailable Unavailable Re-disclosure Warning The records that you are about to access may contain information from federally-assisted alcohol or drug abuse programs. If such information is present, then the following federally mandated warning applies: This information has been disclosed to you from records protected by federal confidentiality rules (42 CFR part 2). The federal rules prohibit you from making any further disclosure of this information unless further disclosure is expressly permitted by the written consent of the person to whom it pertains or as otherwise permitted by 42 CFR part 2. A general authorization for the release of medical or other information is NOT sufficient for this purpose. The Federal rules restrict any use of the information to criminally investigate or prosecute any alcohol or drug abuse patient.The records that you are about to access may contain highly sensitive health information, the redisclosure of which is protected by Article 27-F of the [facility] Public Health law. If you continue you may have access to information: Regarding HIV / AIDS; Provided by facilities licensed or operated by the [facility] Office of Mental Health; or Provided by the [facility] Office for People With Developmental Disabilities. If such information is present, then the following [facility] mandated warning applies: This information has been disclosed to you from confidential records which are protected by state law. State law prohibits you from making any further disclosure of this information without the specific written consent of the person to whom it pertains, or as otherwise permitted by law. Any unauthorized further disclosure in violation of state law may result in a fine or care home sentence or both. A general authorization for the release of medical or other information is NOT sufficient authorization for further disc losure. Allergies and Adverse Reactions Type Description Substance Reaction Status Data Source(s ) Drug Class NO KNOWN ALLERGIES NO KNOWN ALLERGIES [facility] Allergy to substance Allergy to substance Allergy to substance [facility] ([facility]) Allergy to substance Allergy to substance Allergy to substance SE[facility] ([facility]) Family History Family Member Name Family Member Gender Family Member Status Date o f Status Description Data Source(s) Unknown Unknown Problem MED[facility] ([facility]) Encounters Encounter Providers Location Date Indications Data Source(s ) Outpatient Attender: TOVA CHACON MD Main Office 10/17/2020 09:45:00 AM EST [facility] ([facility] [address] [place] [address], Ph. [facility] 08/19/2020 12:00:00 AM EST [facility] ([facility]) [facility] [address] [place] [address], Ph. Attender: Laura Alan [facility] Medical 08/12/2020 12:00:00 AM EST SEAN ([facility]) [facility] [address] [place] [address], Ph. Attender: Laura Alan [facility] Medical 07/31/2020 12:00:00 AM EST SEAN ([facility]) Laura Alan [facility]: [address] [place] [address], Ph. Attender: Laura Alan [facility] Medical 07/31/2020 12:00:00 AM EST SEAN ([facility]) Outpatient Attender: EZEQUIEL NIEVES 02/28/2020 12:02:10 A M EDT [facility] Outpatient Attender: EZEQUIEL NIEVES 02/27/2020 03:32:01 P M EDT [facility] Outpatient Attender: EZEQUIEL NIEVES 02/27/2020 03:31:00 P M EDT [facility] Outpatient Attender: EZEQUIEL NIEVES 02/27/2020 12:34:00 P M EDT [facility] [address] [place] [address] 12/07/2019 12:00:00 AM EDT eCW1 ([facility]) Outpatient Attender: EZEQUIEL NIEVES FP 12/04/2019 09:01:04 P M EDT [facility] [address] [place] [phone] 11/28/2019 12:00:00 AM EST eCW1 ([facility]) [facility] [address] [place] [phone] 11/28/2019 12:00:00 AM EST eCW1 ([facility]) [facility] [address] [place] [address] 11/21/2019 12:00:00 AM EST eCW1 ([facility]) [facility] [address] [place] [address] 11/21/2019 12:00:00 AM EST eCW1 ([facility]) [address] [address] 11/08/2019 12:00:00 AM EST eCW1 ([facility]) Outpatient Attender: Laura NIEVES FP 10/28/2019 04:3 7:01 PM [facility] Outpatient Attender: Laura NIEVES FP 10/28/2019 04:3 6:02 PM [facility] Outpatient Attender: Laura NIEVES FP 10/26/2019 07:3 9:00 PM [facility] Outpatient Attender: EZEQUIEL NIEVES FP 10/26/2019 07:39:00 P M EST [facility] [address] [place] [address] 10/26/2019 12:00:00 AM EST eCW1 ([facility]) [facility] [address] [place] [address] 10/25/2019 12:00:00 AM EST eCW1 ([facility]) Outpatient Attender: Laura NIEVES FP 10/16/2019 09:1 9:01 PM [facility] Outpatient Attender: EZEQUIEL VELAZQUEZ 10/16/2019 09:19:00 P M [facility] Outpatient Referrer: NIRMAL SANDOVAL 10/11/2019 08:21 :00 PM [facility] Outpatient Attender: Laurara Waqas VELAZQUEZ 10/05/2019 03:3 0:10 PM [facility] Outpatient Attender: Laurazulma Alan EZEQUIEL VELAZQUEZ 10/04/2019 06:0 7:01 AM [facility] Outpatient Attender: EZEQUIEL VELAZQUEZ 10/03/2019 04:14:00 P [facility] Outpatient Attender: EZEQUIEL VELAZQUEZ 10/03/2019 02:02:00 P [facility] Outpatient Attender: EZEQUIEL VELAZQUEZ 10/03/2019 09:28:02 A M [facility] Outpatient Attender: EZEQUIEL VELAZQUEZ 10/03/2019 09:27:06 A [facility] Outpatient Attender: EZEQUIEL VELAZQUEZ 10/03/2019 09:15:01 A M [facility] Outpatient Attender: EZEQUIEL Waqas EZEQUIEL VELAZQUEZ 10/03/2019 08:50:02 A [facility] Outpatient Admitter: DEFAULT / GENE REY / UNKNOWN PROVIDER ALIASES [address] [place] [address] 09/14/2019 12:00:00 AM EST Family histor y of epilepsy and other diseases of the nervous system [facility] Family history of epilepsy and other dis eases of the nervous system Medications Medication Brand Name Start Date Product Form Dose Route Admi nistrative Instructions Pharmacy Instructions Status Indications Reaction Description Data Source(s) Nebulizer 10/17/2020 12:00:00 AM EST active [facility] ([facility]) Nebulizer Kit/Tubing/Mouthpiece 10/17/2020 12:00:00 AM EST active [facility] ([facility] Doxepin Hydrochloride 25 MG Oral Capsule Doxepin HCL 021 12:00:00 AM EST ORAL active [facility] ( [facility]) 14 ACTUAT fluticasone furoate 0.1 MG/ACTUAT Dry Powder Inhaler [Arnuity] Arnuity Ellipta 10/17/2020 12:00:00 AM EST RESPIRATORY active [facility] ([facility]) Hydroxyzine Hydrochloride 25 MG Oral Tablet Hydroxyzine HCL 10/17/2020 12:00:00 AM EST ORAL active [facility] ([facility] 60 ACTUAT Albuterol 0.09 MG/ACTUAT Metered Dose Inhaler Albu terol Sulfate HFA 05/25/2020 12:00:00 AM EDT ORAL active [facility] ([facility]) Prempro 0.45-1.5 MG Prempro 0.45-1.5 MG 12/07/2019 12:00:00 AM EDT active 2 tablet eCW1 ([facility]) 0.625-5 mg 11/22/2019 12:00:00 AM EST tablet 28 TAKE ONE TABLET BY MOUTH EVERY DAY TAKE ONE TABLET BY MOUTH EVERY DAY SOLD: 11/23/2019 [facility] 0.625-5 mg 11/22/2019 12:00:00 AM EST tablet 28 TAKE ONE TABLET BY MOUTH EVERY DAY TAKE ONE TABLET BY MOUTH EVERY DAY SOLD: 12/25/2019 [facility] 0.625-5 mg 11/22/2019 12:00:00 AM EST tablet 28 TAKE ONE TABLET BY MOUTH EVERY DAY TAKE ONE TABLET BY MOUTH EVERY DAY SOLD: 01/30/2020 [facility] Amoxicillin 875 MG / Clavulanate 125 MG Oral Tablet Amoxicillin-Pot Clavulanate 875-125 MG Amoxicillin-Pot Clavulanate 875-125 MG 11/21/2019 12:00:00 AM ES T suspended 1 tablet eCW1 ([facility]) Acetaminophen 325 MG / Oxycodone Hydroch loride 5 MG Oral Tablet [Percocet] Percocet 5-325 MG Percocet 5-325 MG 11/21/2019 12:00:00 AM EST suspended 1 tablet as needed eCW1 ([facility]) Prempro 0.625-5 MG Prempro 0.625-5 MG 11/21/2019 12:00:00 AM EST active 1 tablet eCW1 ([facility]) Acetaminophen 325 MG / Oxycodone Hydroch loride 5 MG Oral Tablet [Percocet] Percocet 5-325 MG Percocet 5-325 MG 11/21/2019 12:00:00 AM EST active 1 tablet as needed eCW1 ([facility]) Amoxicillin 875 MG / Clavulanate 125 MG Oral Tablet Amoxicillin-Pot Clavulanate 875-125 MG Amoxicillin-Pot Clavulanate 875-125 MG 11/21/2019 12:00:00 AM ES T active 1 tablet eCW1 ([facility]) Prempro 0.625-5 MG Prempro 0.625-5 MG 11/21/2019 12:00:00 AM EST active 1 tablet eCW1 ([facility]) Prempro 0.625 mg-5 mg tablet TAKE ONE TABLET BY MOUTH EVERY DAY [id number] completed Prempro 0.625 mg-5 mg tab let SEAN ([facility]) Amoxicillin 875 MG / Clavulanate 125 MG Oral Tablet amoxicillin 875 mg-potassium clavulanate 125 mg tablet amoxicillin 875 mg-potassium clavulanate 125 mg tablet completed amoxici llin 875 MG / clavulanate 125 MG Oral Tablet SEAN ([facility]) 24 HR Metformin hydrochloride 500 MG Ext ended Release Oral Tablet metformin ER 500 mg tablet,extended release 24 hr TAKE ONE TABLET BY MOUTH THREE TIMES A DAY metformin ER 500 mg tablet,extended release 24 hr TAKE ONE TABLET BY MOUTH THREE TIMES A DAY completed 2 4 HR metformin hydrochloride 500 MG Extended Release Oral Tablet SEAN ([facility]) Acetaminophen 325 MG / Oxycodone Hydroch loride 5 MG Oral Tablet oxycodone- acetaminophen 5 mg-325 mg tablet oxycodone-acetaminophen 5 mg-325 mg tablet completed acetaminop hen 325 MG / oxycodone hydrochloride 5 MG Oral Tablet SEAN ([facility]) 24 HR Metformin hydrochloride 500 MG Ext ended Release Oral Tablet metformin ER 500 mg tablet,extended release 24 hr TAKE ONE TABLET BY MOUTH THREE TIMES A DAY metformin ER 500 mg tablet,extended release 24 hr TAKE ONE TABLET BY MOUTH THREE TIMES A DAY completed 2 4 HR metformin hydrochloride 500 MG Extended Release Oral Tablet SEAN ([facility]) Cholecalciferol 1000 UNT Oral Tablet cho lecalciferol (vitamin D3) 25 mcg (1,000 unit) tablet TAKE ONE TABLET BY MOUTH EVERY DAY AFTER 50K UNIT CAPS HAVE BEEN FINISHED cholecalciferol (vitamin D3) 25 mcg (1,0 00 unit) tablet TAKE ONE TABLET BY MOUTH EVERY DAY AFTER 50K UNIT CAPS HAVE BEEN FINISHED completed cholecalciferol 0.025 MG Oral Ta blet SEAN ([facility]) ferrous sulfate 325 MG Oral Tablet marlena us sulfate 325 mg (65 mg iron) tablet TAKE ONE TABLET BY MOUTH TWICE A DAY ferrous sulfate 325 mg (65 mg iron) tabl et TAKE ONE TABLET BY MOUTH TWICE A DAY c ompleted ferrous sulfate 325 MG Oral Tablet SE[facility] ([facility]) Cholecalciferol 1000 UNT Oral Tablet cho lecalciferol (vitamin D3) 25 mcg (1,000 unit) tablet TAKE ONE TABLET BY MOUTH EVERY DAY AFTER 50K UNIT CAPS HAVE BEEN FINISHED cholecalciferol (vitamin D3) 25 mcg (1,0 00 unit) tablet TAKE ONE TABLET BY MOUTH EVERY DAY AFTER 50K UNIT CAPS HAVE BEEN FINISHED completed cholecalciferol 0.025 MG Oral Ta blet SE[facility] ([facility]) Acetaminophen 325 MG / Oxycodone Hydroch loride 5 MG Oral Tablet oxycodone- acetaminophen 5 mg-325 mg tablet oxycodone-acetaminophen 5 mg-325 mg tablet completed acetaminop hen 325 MG / oxycodone hydrochloride 5 MG Oral Tablet [facility] ([facility]) Amoxicillin 875 MG / Clavulanate 125 MG Oral Tablet amoxicillin 875 mg-potassium clavulanate 125 mg tablet amoxicillin 875 mg-potassium clavulanate 125 mg tablet completed amoxici llin 875 MG / clavulanate 125 MG Oral Tablet [facility] ([facility]) Prempro 0.625 mg-5 mg tablet TAKE ONE TABLET BY MOUTH EVERY DAY [id number] completed Prempro 0.625 mg-5 mg tab let SEAN ([facility]) ferrous sulfate 325 MG Oral Tablet marlena us sulfate 325 mg (65 mg iron) tablet TAKE ONE TABLET BY MOUTH TWICE A DAY ferrous sulfate 325 mg (65 mg iron) tabl et TAKE ONE TABLET BY MOUTH TWICE A DAY c ompleted ferrous sulfate 325 MG Oral Tablet SE[facility] ([facility]) Insurance Providers Payer name Policy type / Coverage type Policy ID Covered republican ID Covered republican's relationship to coles Policy Coles Plan Information [facility] [id number] SP [id number] [facility] [id number] SP [id number] UNHC COMMUNITY PLAN MCDHMO [id number] SP [id number] SELF PAY ONLY [id number] SP [id number] UHC I [id number] Self [id number] Managed Care - UHC Community Plan P [id number] S [id number] Medicaid S [id number] S [id number] [facility]) O [id number] S [id number] UNHC COMMUNITY PLAN MCDHMO [id number] SP [id number] Managed Care - UHC Community Plan P [id number] S [id number] Managed Care - Community Plan United [employer] P [id number] S [id number] Managed Care - Community Plan United Healthcare P [id number] S [id number] Medicaid S [id number] S [id number] [facility] [id number] Preferred Provider Organization (PPO) [id number] Managed Care - Community Plan United [employer] P [id number] S [id number] Medicaid S [id number] S [id number] UHC COMMUNTY PLAN MC [id number] 18 [id number] Uhc Communty Plan Medicaid [id number] Self [id number] [facility] Organization (HMO) [id number] Self [id number] [facility] (HMO) [id number] Self [id number] UNHC COMMUNITY PLAN XIX [id number] 18 [id number] Unhc Community Plan Medicaid [id number] Self [id number] UNHC COMMUNITY PLAN MC [id number] 18 [id number] Unhc Community Plan Medicaid [id number] Self [id number] Unhc Community Plan Medicaid [id number] Self [id number] Unhc Community Plan Medicaid [id number] Self [id number] [facility] (HMO) [id number] Self [id number] [facility] (HMO) [id number] Self [id number] UHC Comm Plan Medicaid F [id number] SELF [id number] UHC Comm Plan Medicaid F [id number] SELF [id number] Unhc Community Plan Medicaid [id number] Self [id number] UHC Comm Plan Medicaid F [id number] SELF [id number] Unhc Community Plan Medicaid [id number] Self [id number] UNHC COMMUNITY PLAN MCDHMO [id number] SP [id number] UNHC COMMUNITY PLAN MCDHMO [id number] SP [id number] Managed Care - Community Plan United Healthcare P [id number] S [id number] Medicaid S [id number] S [id number] Managed Care - Community Plan United Healthcare P [id number] S [id number] Medicaid S [id number] S [id number] [facility] I [id number] Self [id number] Managed Care BCBS O [id number] S [id number] Managed Care - Community Plan United Healthcare P UNAVAILABLE S UNAVAILABLE Medicaid P [id number] S [id number] [employer] PLAN [id number] SP [id number] [employer] BCBS P [id number] S [id number] Problems, Conditions, and Diagnoses Code Display Name Description Problem Type Effective Dates Data Source(s) 30355930 Obstructive sleep apnea syndrome Obstructive sle ep apnea syndrome Problem 10/17/2020 12:00:00 AM EST [facility] ([facility] [id number] Allergic rhinitis due to house dust mite Allergic rhinitis due to house dust mite Problem 08/01/2020 12:00:00 AM EST [facility] ([facility]) Note: 3+ reaction to dust mite on intrad ermal test completed in 2018. [id number] Clinical finding Clinical Finding Problem 07/11/2020 04 :36:44 PM EDT [place] ([facility]) [id number] Asthma Asthma Problem 07/11/2020 04:36:44 PM ED T [place] ([facility]) [id number] Viral hepatitis C Viral Hepatitis C Problem 07/11/2020 04:36:44 PM EDT [place] ([facility]) [id number] Clinical finding Clinical Finding Problem 07/11/2020 04 :36:44 PM EDT [place] ([facility]) [id number] Asthma Asthma Problem 07/11/2020 04:36:44 PM ED T [place] ([facility]) [id number] Viral hepatitis C Viral Hepatitis C Problem 07/11/2020 04:36:[facility] N83.201 Unspecified ovarian cyst, right side Uns pecified ovarian cyst, right side 10/03/2019 09:27:35 AM EST [facility] [id number] Cyst of ovary Cyst of Ovary Problem 10/03/2019 12:00:00 AM EST [place] ([facility]) 96152096 Cyst of ovary Cyst of Ovary Problem 10/03/2019 12:00:00 AM EST [place] ([facility]) Surgeries/Procedures Procedure Description Date Indications Data Source(s) BRNCDILAT RSPSE SPMTRY PRE&POST-BRNCDILAT ADMN 021 12:00:00 AM EST [facility] ([facility]) Results ID Date Data Source [id number] 11/09/2020 11:00:00 AM EST [facility] Name Value Range Interpretation Code Description Data Stella rce(s) Supporting Document(s) SARS coronavirus 2 RNA Not Detected [facility] [place] This lab was ordered by [facility] and reported by [facility]. ID Date Data Source [id number] 09/07/2020 12:00:00 AM EST [facility] Name Value Range Interpretation Code Description Data Stella rce(s) Supporting Document(s) SARS-CoV-2 (COVID-19) RNA [Presence] in Respiratory specimen by EVELIA with probe detection [facility] This lab was ordered by [facility] and reported by [employer] ID Date Data Source [id number] 08/12/2020 11:05:00 AM [facility] Name Value Range Interpretation Code Description Data Stella rce(s) Supporting Document(s) total 25(oh) vitamin D 11.4 NG/mL 30.0-100.0 Below low normal T otal 25(Oh) Vitamin D [facility]) ID Date Data Source [id number] 08/12/2020 11:05:00 AM [facility] Name Value Range Interpretation Code Description Data Stella rce(s) Supporting Document(s) thyroid stimulating hormone 2.220 uIU/mL 0.358-3.740 normal Thyroid Stimulating Hormone [facility] ([facility]) free T4 0.95 NG/dL 0.76-1.46 normal Free T4 [facility] ([facility]) ID Date Data Source [id number] 08/12/2020 11:05:00 AM EST [facility] ([facility]) Name Value Range Interpretation Code Description Data Stella rce(s) Supporting Document(s) triglycerides level 191 mg/dL <150 Above high normal Triglycer ides Level [facility] ([facility]) cholesterol level 224 mg/dL <200 Above high normal Cholesterol Level [facility] ([facility]) HDL cholesterol 64 mg/dL >40 normal HDL Cholesterol [facility] ([facility]) non-HDL-C 160 mg/dL normal Non-hdl-c [place] ([facility]) Cholesterol in LDL [Mass/volume] in Serum or Plasma 122 mg/dL <100 Above high normal LDL Cholesterol [facility] ([facility]) cholesterol risk ratio <5 normal Cholesterol R isk Ratio [place] ([facility]) ID Date Data Source [id number] 08/12/2020 11:05:00 AM EST [place] ([facility]) Name Value Range Interpretation Code Description Data Stella rce(s) Supporting Document(s) glucose, fasting 120 mg/dL 70-100 Above high normal Glucose, Fas ting [facility] ([facility]) blood urea nitrogen 12 mg/dL 7-18 normal Blood Urea Nitro gen [facility] ([facility]) creatinine for GFR 0.82 mg/dL 0.55-1.30 normal Creatinine for GF R [facility] ([facility]) glomerular filtration rate > 60.0 >58 normal Glomerula r Filtration Rate [facility] ([facility]) sodium level 138 mEq/L 136-145 normal Sodium Level [facility] ([facility]) potassium serum 4.3 mEq/L 3.5-5.1 normal Potassium Serum [facility] NA ([facility]) chloride level 104 mEq/L 98-107 normal Chloride Level [facility] ([facility]) AST/SGOT 30 U/L 7-37 normal AST/SGOT [facility] ([facility]) carbon dioxide level 28 mEq/L 21-32 normal Carbon Dioxide Level [facility] ([facility]) calcium level 9.7 mg/dL 8.5-10.1 normal Calcium Level [facility] ( [facility]) anion gap 6 mEq/L 8-16 Below low normal Anion Gap [facility] ( [facility]) bilirubin,total 0.6 mg/dL 0.2-1.0 normal Bilirubin,total [facility] ([facility]) albumin 3.6 gm/dL 3.2-5.2 normal Albumin SE[facility] ([facility]) total protein 7.9 gm/dL 6.4-8.2 normal Total Protein [facility] ( [facility]) ALT/SGPT 31 U/L 12-78 normal ALT/SGPT [facility] ([facility]) alkaline phosphatase 131 U/L 45-117 Above high normal Alkaline Phosphatase [facility] ([facility]) albumin/globulin ratio 1.2-2.2 Below low normal Albumin /globulin Ratio [facility] ([facility]) ID Date Data Source [id number] 08/12/2020 11:05:00 AM EST [facility] ([facility]) Name Value Range Interpretation Code Description Data Stella rce(s) Supporting Document(s) estimated average glucose 137 mg/dL 60-110 Above high norm al Estimated Average Glucose [facility] ([facility]) Hemoglobin A1c/Hemoglobin.total in Blood 6.4 % normal Hemoglobin a1C [facility] ([facility]) ID Date Data Source [id number] 08/12/2020 11:05:00 AM EST [facility] ([facility]) Name Value Range Interpretation Code Description Data Stella rce(s) Supporting Document(s) white blood count 5.4 10 4.0-10.0 normal White Blood Count [facility] ([facility]) hematocrit 44.5 % 36.0-47.0 normal Hematocrit [facility] ([facility]) hemoglobin 13.9 g/dL 12.0-15.5 normal Hemoglobin [facility] ([facility]) red blood count 5.43 10 4.00-5.40 Above high normal Red Blood Cou nt [facility] ([facility]) mean corpuscular hemoglobin 25.6 pg 27.0-33.0 Below low nor mal Mean Corpuscular Hemoglobin [facility] ([facility]) mean corpuscular HGB conc 31.2 g/dL 32.0-36.5 Below low sonia l Mean Corpuscular HGB Conc [facility] ([facility]) mean corpuscular volume 82.0 fL 80.0-96.0 normal Mean Corpusc ular Volume [facility] ([facility]) red cell distribution width 13.2 % 11.5-14.5 normal Red Cell Distribution Width [facility] ([facility]) lymph % 22.6 % 24.0-44.0 Below low normal Lymph % [place] ( [facility]) platelet count, automated 291 10 150-450 normal Platelet C ount, Automated [facility] ([facility]) neutrophils % 65.9 % 36.0-66.0 normal Neutrophils % [facility] ( [facility]) immature granulocyte % 0.4 % 0-3.0 normal Immature Gran ulocyte % [place] ([facility]) eos % 3.7 % 0.0-3.0 Above high normal Eos % [place] ([facility]) mono % 6.8 % 0.0-5.0 Above high normal [place] % [facility] ([facility]) baso % 0.6 % 0.0-1.0 normal Baso % [facility] ([facility]) nucleated red blood cell % 0.0 % 0-0 normal Nucleated Red Blood Cell % [facility] ([facility]) lymph # 1.2 10 1.5-5.0 Below low normal Lymph # [facility] ( [facility]) mono # 0.4 10 0.0-0.8 normal [place] # [facility] ([facility]) neutrophils # 3.6 10 1.5-8.5 normal Neutrophils # [facility] ( [facility]) eos # 0.2 10 0.0-0.5 normal Eos # [facility] ([facility]) baso # 0.0 10 0.0-0.2 normal Baso # [facility] ([facility]) ID Date Data Source [id number] 10/03/2019 09:55:00 AM [facility] Name Value Range Interpretation Code Description Data Stella rce(s) Supporting Document(s) BG FASTING 106 mg/dL 70-100 H [facility] T4, FREE 0.96 ng/dL 0.76-1.46 N [facility] TSH 2.290 microintl units/mL 0.358-3.740 N [facility] VIT D25 TOT 12.7 ng/mL 30.0-100.0 L [facility] ID Date Data Source [id number] 10/03/2019 09:55:00 AM [facility] Name Value Range Interpretation Code Description Data Stella rce(s) Supporting Document(s) HCT 43.4 % 36.0-47.0 [facility] HGB 13.4 g/dL 12.0-15.5 N [facility] MCH 30.9 G/DL pg 32.0-36.5 L [facility] MCHC 24.1 PG % 27.0-33.0 L [facility] PLATELETS 257 10 10*3/mm3 150-450 N [facility] RBC 5.56 10 10*6/mm3 4.00-5.40 H [facility] RDW 22.9 % 11.5-14.5 H [facility] WBC TOTAL 5.5 4.0-10.0 N [facility] ID Date Data Source [id number] 10/03/2019 09:55:00 AM [facility] Name Value Range Interpretation Code Description Data Stella rce(s) Supporting Document(s) HGBA1C 5.0 % N [facility] ID Date Data Source [id number] 10/03/2019 08:51:08 AM [facility] Measurements & CalculationsHeight: 63 inches (5 ft. 3 in.) 160.02 cm Weight: 198 pounds 3 oz. 90.09 kg Body Mass Index (BMI): 35.23BMI Interpretation: ObeseBody Surface Area (BSA): 1.93Weight Management Education Done (Nutrition/Physical Activity)Vital SignsTemperature: 97.5F 36.39C Pulse Rate: 65 beats/minuteRespiratory Rate: 16 respirations/minuteBlood Pressure: 111/73 right arm sitting automaticO2 Saturation: 98% room airVital Signs performed by: Elo Mitchell MA, October 03, 2019 8:52 AMInitial Intake Information from: patientRoom #: 14Infectious Disease- Travel Have you or your sexual partner travelled outside of the country recently? NoSmoking, Tobacco or Smoke Exposure StatusSmoke Status: never smokerTobacco Use: NoPassive Smoke Exposure: NoMenstrual HistoryLast Menstrual Period (LMP): 09/28/2019Any possibility of ? NoHealthcare HistorySince your last office visit. ..Have you been admitted to the hospital? NoHave you been to an emergency room (ER) or urgent care clinic? Yes - [facility] (ER) or urgent care date reported today: 09/27/2019Have you seen another healthcare provider? NoHave you seen a dentist? NoIntake performed by: Elo Mitchell MA, October 03, 2019 8:55 AMRate Your HealthIn general, would you say your health is? FairPain AssessmentAre you currently having any pain which... You would like your provider to address? Yes Affects your activity level? YesDepression Screening - PHQ-2Over the last two weeks, have you... Had little interest or pleasure in doing things? Not at all Been feeling down, depressed, or hopeless? Not at all PHQ-2 Score: 0Anxiety Screening - BHARATH-2Over the last two weeks, have you been... Feeling nervous, anxious, or on edge? Not at all Unable to stop or control worrying? Not at all BHARATH-2 Score: 0Infectious Disease- Travel Cont. Any possibility of ? NoPain AssessmentPain ScaleNumeric Rating Scale: 7 / 10Location: Right lower backDuration: 1 weekFrequency: DailyCharacter/Quality: stabbing. contractionsIs the pain radiating? NoScreening, Brief Intervention, & Referral to Treatment (SBIRT)Pre-Screening Questions How many times have you have 4 or more drinks in a day? 0How many times have you used an illegal drug or used a prescription medication for a non-medical reason? 0Performed by: Elo Mitcehll MA, October 03, 2019 8:56 AMPatient History Medical History:AsthmaDiabetes, Type 2Hepatitis C, with negative viral load 03/2018Varicose Veins/PhlebitisCarpal Tunnel bilateraltendonitis- new-(L) foot and ankleSurgical History:C-SectionBladder StonesTubal LigationBack Surgery- 4,5gastric bipassvericose veinscarpel tunnel both wristsFamily History:Family History UnknownDiabetes (Father)Hypertension (Father)Social/Personal History: Smoking Status: never smokerChief ComplaintOvarian Cyst History of Present Illness (HPI)44 yo female here today for hospital follow up. Pt states went to the hospital due to severe right lower back pain radiating to right lower quadrant.CT scan indicates large ovarian cyst. Pt states was treated with percocet but still in pain. Pt states [facility] but appointment not until end of end october. Pt is requesting a referral for a possible sooner appointment. HPI performed by: Laura ALBARRANP, October 03, 2019 9:04 AMTransitions of Care InboundProblem ReviewProblem List was reviewed and/or updated during this visit.Medication Reconciliation & ReviewMedication List was reviewed and/or updated during this visit, including review of any [id number] medications, herbal therapies, and/or supplements.Allergy ReviewAllergy List was reviewed and/or updated during this visit.Adult Preventive CareProvider Calculated and Reviewed all Clinical Protocols for patient today. Labs/Meds/Other Counseling-Nutrition and Physical Activity:BMI Interpretation: Obese (10/03/2019) Counseling: Done (10/03/2019) Physical Activity: Done (10/03/2019)Cancer Screening Pap Smear/HPV TestingReviewed: Previous Comments: woman to woman a year and a half ago (06/26/2019)Today's Comments: wants referral Review of Systems General: Denies loss of appetite, chills, dizziness, fatigue, fever, continued fever, headache, feeling ill, sweats, night sweats, sleep disturbances, weight loss. Eyes: Denies blurring of vision, double vision, irritation, discharge, vision loss, eye pain, eye swelling, droopy eyelid, sensitivity to light, redness, itching. Ears/Nose/Throat: Denies earache, ear discharge, ringing in ears, decreased hearing, nasal congestion, nosebleeds, runny nose, sore throat, hoarseness, difficulty swallowing, dry mouth, tooth pain, bleeding gums, swollen glands. Cardiovascular: Denies chest pain, palpitations, feeling faint, trouble breathing w/exertion, SOB upon lying down, SOB at night, peripheral edema, elevated blood pressure, decreased heart rate. Respiratory: Denies cough, difficulty breathing, shortness of breath, excessive sputum, coughing up blood, wheezing, chest pain. Breast: Denies discoloration, tenderness, breast changes, breast lump, nipple discharge. Gastrointestinal: Complains of abdominal pain. Denies nausea, vomiting, bleeding, burning, itching, irritation, cramps, diarrhea, constipation, pain with BM, blood in stool, black or tarry stools, jaundice, heartburn. Genitourinary: Complains of pelvic pain. Denies urinary incontinence, pain with urination, burning with urination, urinary frequency, urinary hesitancy, urinary urgency, urinary urgency at night, incomplete emptying, blood in urine, vaginal discharge. Musculoskeletal: Complains of back pain. Denies joint pain, leg pain, joint swelling, body aches, muscle aches, muscle cramps, muscle weakness, stiffness, recent injury. Skin: Denies rash, hives, redness, itching, dryness, nail changes, suspicious lesions, athlete's foot, rash on palms, rash on bottom of feet. Neurologic: Denies muscle impairment, weakness, numbness/tingling, seizures, slurred speech, feeling faint, tremors, vertigo, paralysis on one side, paralysis on both sides. Psychiatric: Denies depression, anxiety, memory loss, mental disturbance, suicidal ideation, homicidal ideation, hallucinations, paranoia, feeling stressed, hearing voices. Endocrine: Denies cold intolerance, heat intolerance, excessive thirst, excessive hunger, excessive urination, weight loss, weight gain. Heme/Lymphatic: Denies abnormal bruising, bleeding, enlarged lymph nodes. Physical ExamGeneral Appearance: well nourished, well hydrated, no acute distressEyes, External: conjunctivae and lids normal, EOMIRespiratory, Auscultation: clear to auscultation bilaterally; no rales, rhonchi, or wheezesRespiratory, Effort: no intercostal retractions or use of accessory musclesCardiovascular, Auscultation: S1, S2 audible; no murmur, rub, or gallop; RRRPeripheral Circulation: no clubbing, cyanosis, edema, or varicositiesAbdomen: right lower quadrant tender on paalpation, bowel sounds normal. Gait & Station: normalSkin, Inspection: no rashes, lesions, or ulcerationsOrientation: oriented to time, place, and personMood & Affect: no depression, anxiety, or agitationJudgment & Insight: intactCare Management Plan Transitions of CareInboundRate Your HealthIn general, would you say your health is? FairAssessment & Plan Problems:Added: Unspecified ovarian cyst, right side (DEK26-O27.201) Assessment: Instructions: We have made a referral for you today. We will contact you to set this up.Assessed:DIABETES, TYPE 2 (ICD-250.00) (ZID36-R96.9) Assessment: Instructions: Please continue lifestyle changes to include healthy diet and physical activities. Please try to limit sugars and carbohydrates in your diet.Health Screening (ICD-V70.0) (ZVA74-X66.9) Assessment: Instructions: We have ordered labs for you today. We will contact you if results are abnormal.Iron deficiency anemia, unspecified (VIB68-S99.9) Assessment: Instructions: Please reeport any abnormal bleeding. Please continue to followw wwith your specialist.Patient Instructions/Care Plan: Unspecified ovarian cyst- right side: We have made a referral for you today. We will contact you to set this up.DIABETES- TYPE 2: Please continue lifestyle changes to include healthy diet and physical activities. Please try to limit sugars and carbohydrates in your diet.Health Screening: We have ordered labs for you today. We will contact you if results are abnormal.Iron deficiency anemia- unspecified: Please reeport any abnormal bleeding. Please continue to followw wwith your specialist. Plan developed in collaboration with patient and/or familyMedications:FERROUS SULFATE 325 (65 FE) MG ORAL TABLETVITAMIN D 1000 UNIT ORAL TABLETVITAMIN D (ERGOCALCIFEROL) 44596 UNIT ORAL CAPSULEIBUPROFEN 800 MG ORAL TABLETDERMASORB TA 0.1 % EXTERNAL KITEPIPEN 2-SHANNAN 0.3 MG/0.3ML INJECTION SOLUTION AUTO-INJECTORZANTAC 150 MG ORAL TABLETALL DAY ALLERGY 10 MG ORAL CAPSULEARNUITY ELLIPTA 100 MCG/ACT INHALATION AEROSOL POWDER BREATH ACTIVATEDFLOVENT DISKUS 100 MCG/BLIST INHALATION AEROSOL POWDER BREATH ACTIVATEDPROVENTIL HFA 108 (90 BASE) MCG/ACT INHALATION AEROSOL SOLUTIONMedication Changes:Removed:METFORMIN HCL ER 500 MG ORAL TABLET EXTENDED RELEASE 24 HOUR-1 po tid Qty: 90[Tablet] Refills: 5Allergies:No Known Allergies (updated 02/03/2018) Orders:46815-Ctc Vst-Est Level I [CPT-89834] 94112 - Venipuncture [CPT-37898] Supervisor Diagnostic [CPT-48819] COMP METABOLIC PANEL [CPT-68277] CBC W/DIFF [CPT-00835] HgBA1c [CPT-90833] LIPID PANEL [CPT-10450] TSH [CPT-20524] T- 4 free [CPT-54205] Vitamin D 250H Unspecified [CPT-93814] Adult - Ofc Vst, EST, Level IV [CPT-48483] Follow-Up Return to clinic: 3-4 weeks for follow up Clinical Visit Summary CompletedThe patient was counseled by the physician on immunizations due, and on the risks and benefits of immunizations.Vaccines Administered/Entered:Vaccination Group: InfluenzaSeries: 1 NOT GIVENVaccination: Afluria Intramuscular SuspensionReason Not Given: Patient decisionEntered Date: 10/03/2019 12:00 AMEntered by: Paula SOSA, [facility] In-House Blood TestsDate/Time Collected: October 03, 2019 11:08 AMTest Result Reference Range Normal ValueComments: blood draw done in offcie done in the left ac tolerated well Noel Vergara MA, October 03, 2019 11:08 AM Name Value Range Interpretation Code Description Data Stella rce(s) Supporting Document(s) Procedure Social History Code Duration Value Status Description Data Source(s ) Smoking 10/17/2020 12:00:00 AM EST Patient has never smoked co mpleted Patient has never smoked MEDENT ([facility] ) Vital Signs ID Date Data Source UNK Name Value Range Interpretation Code Description Data Source(s) Body mass index (BMI) [Ratio] 38.3 kg/m2 38.3 k g/m2 [facility] ([facility]) Diastolic blood pressure 76 mm[Hg] 76 mm[Hg] MEDENT ([facility]) Systolic blood pressure 114 mm[Hg] 114 mm[Hg] M EDENT ([facility]) Respiratory rate 18 /min 18 /min MEDENT ( [facility]) Heart rate 72 /min 72 /min [facility] ([facility] Body height 62 [in_i] 62 [in_i] MED[facility] ([facility] 5'2" Body weight 209.50 [lb_av] 209.50 [lb_av] MEDEN T ([facility] Body surface area Derived from formula 1.94 m2 1.94 m2 MEDENT ([facility]) Body weight 93.895 kg 93.895 kg MEDENT ([facility]) Romeo body weight 110 [lb_av] 110 [lb_av] MEDEN T ([facility]) Body mass index (BMI) [Ratio] 37.9 kg/m2 37.9 k g/m2 MEDENT ([facility]) Body weight 207.00 [lb_av] 207.00 [lb_av] MEDEN T ([facility]) Body height 62 [in_i] 62 [in_i] MEDENT ([facility]) 5'2" Diastolic blood pressure 72 mm[Hg] 72 mm[Hg] MEDENT ([facility]) Systolic blood pressure 136 mm[Hg] 136 mm[Hg] M LUANN ([facility]) Body weight 3286.4 [oz_av] 3286.4 [oz_av] ATHEN A ([facility]) Systolic blood pressure 119 mm[Hg] 119 mm[Hg] A THENA ([facility]) Body mass index (BMI) [Ratio] 36.4 kg/m2 36.4 k g/m2 SEAN ([facility]) Body height 63 [in_i] 63 [in_i] SEAN ([facility]) Diastolic blood pressure 82 mm[Hg] 82 mm[Hg] SEAN ([facility]) Body mass index (BMI) [Ratio] 36.4 kg/m2 36.4 k g/m2 SEAN ([facility]) Body height 63 [in_i] 63 [in_i] SEAN ([facility]) Diastolic blood pressure 42 mm[Hg] 42 mm[Hg] SEAN ([facility]) Diastolic blood pressure 82 mm[Hg] 82 mm[Hg] SEAN ([facility]) Body weight 3289.6 [oz_av] 3289.6 [oz_av] ATHEN A ([facility]) Systolic blood pressure 90 mm[Hg] 90 mm[Hg] A THENA ([facility]) Systolic blood pressure 114 mm[Hg] 114 mm[Hg] A THENA ([facility]) Body mass index (BMI) [Ratio] 36.4 kg/m2 36.4 k g/m2 SEAN ([facility]) Body height 63 [in_i] 63 [in_i] SEAN ([facility]) Diastolic blood pressure 42 mm[Hg] 42 mm[Hg] SEAN ([facility]) Diastolic blood pressure 82 mm[Hg] 82 mm[Hg] SEAN ([facility]) Body weight 3289.6 [oz_av] 3289.6 [oz_av] ATHEN A ([facility]) Systolic blood pressure 90 mm[Hg] 90 mm[Hg] A THENA ([facility]) Systolic blood pressure 114 mm[Hg] 114 mm[Hg] A THENA ([facility]) Diastolic blood pressure 64 mm[Hg] 64 mm[Hg] eCW1 ([facility]) Systolic blood pressure 112 mm[Hg] 112 mm[Hg] e CW1 ([facility]) Body mass index (BMI) [Ratio] 36.06 kg/m2 36.06 kg/m2 eCW1 ([facility]) Body height 62 [in_us] 62 [in_us] eCW1 ([facility]) Body weight Measured 197.2 [lb_av] 197.2 [lb_av ] eCW1 ([facility]) Diastolic blood pressure 64 mm[Hg] 64 mm[Hg] eCW1 ([facility]) Systolic blood pressure 110 mm[Hg] 110 mm[Hg] e CW1 ([facility]) Body mass index (BMI) [Ratio] 35.52 kg/m2 35.52 kg/m2 eCW1 ([facility]) Body height 62 [in_us] 62 [in_us] eCW1 ([facility]) Body weight Measured 194.2 [lb_av] 194.2 [lb_av ] eCW1 ([facility]) Diastolic blood pressure 70 mm[Hg] 70 mm[Hg] eCW1 ([facility]) Systolic blood pressure 120 mm[Hg] 120 mm[Hg] e CW1 ([facility]) Body mass index (BMI) [Ratio] 36.43 kg/m2 36.43 kg/m2 eCW1 ([facility]) Body height 62 [in_us] 62 [in_us] eCW1 ([facility]) Body weight Measured 199.2 [lb_av] 199.2 [lb_av ] eCW1 ([facility]) Body weight 3171.04 [oz_av] 3171.04 [oz_av] ATH KAILYN ([facility]) Systolic blood pressure 111 mm[Hg] 111 mm[Hg] A THENA ([facility]) Body height 63 [in_i] 63 [in_i] SEAN ([facility]) Diastolic blood pressure 73 mm[Hg] 73 mm[Hg] SEAN ([facility]) Body weight 3171.04 [oz_av] 3171.04 [oz_av] ATH KAILYN ([facility]) Systolic blood pressure 111 mm[Hg] 111 mm[Hg] A THENA ([facility]) Body height 63 [in_i] 63 [in_i] SEAN ([facility]) Diastolic blood pressure 73 mm[Hg] 73 mm[Hg] SEAN ([facility]) Patient Treatment Plan of Care Planned Activity Planned Date Details Description Data Source (s) Prempro 0.45-1.5 MG 12/07/2019 12:00:00 AM EDT eCW1 ([facility]) Prempro 0.625-5 MG 11/21/2019 12:00:00 AM EST eCW1 ([facility]) Acetaminophen 325 MG / Oxycodone Hydrochloride 5 MG Or al Tablet [Percocet] 11/21/2019 12:00:00 AM EST eCW1 ([facility]) Amoxicillin 875 MG / Clavulanate 125 MG Oral Tablet 11/21/19 12:00:00 AM EST eCW1 ([facility]) Prempro 0.625 mg-5 mg tablet TAKE ONE TABLET BY MOUTH EVERY DAY SEAN ([facility]) Acetaminophen 325 MG / Oxycodone Hydrochloride 5 MG Oral Tablet [place] ([facility]) 24 HR Metformin hydrochloride 500 MG Extended Release Oral Tablet SEAN ([facility]) ferrous sulfate 325 MG Oral Tablet SEAN ([facility]) Cholecalciferol 1000 UNT Oral Tablet SEAN ([facility]) Amoxicillin 875 MG / Clavulanate 125 MG Oral Tablet SEAN ([facility]) Prempro 0.625 mg-5 mg tablet TAKE ONE TABLET BY MOUTH EVERY DAY SEAN ([facility]) Acetaminophen 325 MG / Oxycodone Hydrochloride 5 MG Oral Tablet SEAN ([facility]) 24 HR Metformin hydrochloride 500 MG Extended Release Oral Tablet SEAN ([facility]) ferrous sulfate 325 MG Oral Tablet SEAN ([facility]) Cholecalciferol 1000 UNT Oral Tablet SEAN ([facility]) Amoxicillin 875 MG / Clavulanate 125 MG Oral Tablet SEAN ([facility])
[2020-11-14] MEDS ORDERED: fentaNYL 100 MCG/2 ML INJECTION (J3010) As Ordered ONE (11:20)
[2020-11-14] MEDS ORDERED: propofoL 200 MG/20 ML VIAL As Ordered ONE ×2 (11:36→12:13)
[2020-11-14] MEDS ORDERED: LIDOCAINE 2% 100MG/5ML SDV (FOR ANES.) As Ordered ONE (11:37)
--- NOTE | 2020-11-14 12:28 | ROOR ---
Patient Name: Patricia Guardado Procedure Date: 11/14/2020 11:34 AM Date of : 1975 Age: 45 Room: [facility] Gender: Female Note Status: Finalized Procedure: Upper GI endoscopy Indications: Epigastric abdominal pain, Dyspepsia, Diarrhea Providers: Aldo Quiroga MD Referring MD: Laura Alan NP Requesting Provider: Medicines: Monitored Anesthesia Care Complications: No immediate complications. Procedure: Pre-Anesthesia Assessment: - Prior to the procedure, a History and Physical was performed, and patient medications and allergies were reviewed. The patient is competent. The risks and benefits of the procedure and the sedation options and risks were discussed with the patient. All questions were answered and informed consent was obtained. Patient identification and proposed procedure were verified by the physician, the nurse and the anesthesiologist in the procedure room. Mental Status Examination: alert and oriented. Airway Examination: normal oropharyngeal airway and neck mobility. Respiratory Examination: clear to auscultation. CV Examination: normal. Prophylactic Antibiotics: The patient does not require prophylactic antibiotics. Prior Anticoagulants: The patient has taken no previous anticoagulant or antiplatelet agents. ASA Grade Assessment: II - A patient with mild systemic disease. After reviewing the risks and benefits, the patient was deemed in satisfactory condition to undergo the procedure. The anesthesia plan was to use monitored anesthesia care (MAC). Immediately prior to administration of medications, the patient was re-assessed for adequacy to receive sedatives. The heart rate, respiratory rate, oxygen saturations, blood pressure, adequacy of pulmonary ventilation, and response to care were monitored throughout the procedure. The physical status of the patient was re-assessed after the procedure. The Endoscope was introduced through the mouth, and advanced to the afferent and efferent jejunal loops. The upper GI endoscopy was accomplished without difficulty. The patient tolerated the procedure well. Findings: The Z-line was irregular and was found in the distal esophagus. Evidence of a Christi-en-Y gastrojejunostomy was found. The gastrojejunal anastomosis was characterized by healthy appearing mucosa. This was traversed. The imnkm-fz-cukvaux limb was characterized by healthy appearing mucosa. The jejunojejunal anastomosis was characterized by healthy appearing mucosa. The uomdwxee-ry-wtmmjik limb was not examined as it could not be found. Scattered mild inflammation characterized by erythema and granularity was found in the gastric body. Biopsies were taken with a cold forceps for Helicobacter pylori testing. Verification of patient identification for the specimen was done by the physician and nurse using the patient's name, date and medical record number. Estimated blood loss was minimal. Normal mucosa was found in the jejunum. Biopsies for histology were taken with a cold forceps for evaluation of celiac disease. Impression: - Z-line irregular, in the distal esophagus. - Christi-en-Y gastrojejunostomy with gastrojejunal anastomosis characterized by healthy appearing mucosa. - Gastritis. Biopsied. - Normal mucosa was found in the jejunum. Biopsied. Recommendation: - Patient has a contact number available for emergencies. The signs and symptoms of potential delayed complications were discussed with the patient. Return to normal activities tomorrow. Written discharge instructions were provided to the patient. - Post gastric bypass diet (small frequent meals and avoid fatty/ fried foods). - Continue present medications. - Follow an antireflux regimen. - Await pathology results. - Telephone GI clinic for pathology results in 2 weeks. - Return to primary care physician. Procedure Code(s): --- Professional --- 91422, Esophagogastroduodenoscopy, flexible, transoral; with biopsy, single or multiple Diagnosis Code(s): --- Professional --- K22.8, Other specified diseases of esophagus Z98.0, Intestinal bypass and anastomosis status K29.70, Gastritis, unspecified, without bleeding R10.13, Epigastric pain R19.7, Diarrhea, unspecified CPT copyright 2019 [employer]. All rights reserved. The codes documented in this report are preliminary and upon personal support worker review may be revised to meet current compliance requirements. Aldo Quiroga MD Aldo Quiroga MD 11/14/2020 12:28:24 PM Electronically signed by Aldo Quiroga MD Number of Addenda: 0 Note Initiated On: 11/14/2020 11:34 AM Estimated Blood Loss: Estimated blood loss was minimal.
--- NOTE | 2020-11-14 12:33 | ROOR ---
Patient Name: Patricia Guardado Procedure Date: 11/14/2020 11:35 AM Date of : 1975 Age: 45 Room: [facility] Gender: Female Note Status: Finalized Procedure: Colonoscopy Indications: Chronic diarrhea, Hematochezia Providers: Aldo Quiroga MD Referring MD: Laura Alan NP Requesting Provider: Medicines: Monitored Anesthesia Care Complications: No immediate complications. Procedure: Pre-Anesthesia Assessment: - Prior to the procedure, a History and Physical was performed, and patient medications and allergies were reviewed. The patient is competent. The risks and benefits of the procedure and the sedation options and risks were discussed with the patient. All questions were answered and informed consent was obtained. Patient identification and proposed procedure were verified by the physician, the nurse and the anesthesiologist in the procedure room. Mental Status Examination: alert and oriented. Airway Examination: normal oropharyngeal airway and neck mobility. Respiratory Examination: clear to auscultation. CV Examination: normal. Prophylactic Antibiotics: The patient does not require prophylactic antibiotics. Prior Anticoagulants: The patient has taken no previous anticoagulant or antiplatelet agents. After reviewing the risks and benefits, the patient was deemed in satisfactory condition to undergo the procedure. The anesthesia plan was to use monitored anesthesia care (MAC). Immediately prior to administration of medications, the patient was re-assessed for adequacy to receive sedatives. The heart rate, respiratory rate, oxygen saturations, blood pressure, adequacy of pulmonary ventilation, and response to care were monitored throughout the procedure. The physical status of the patient was re-assessed after the procedure. The Colonoscope was introduced through the anus and advanced to the terminal ileum, with identification of the appendiceal orifice and IC valve. The colonoscopy was performed without difficulty. The patient tolerated the procedure well. The quality of the bowel preparation was excellent. The terminal ileum, ileocecal valve, appendiceal orifice, and rectum were photographed. Scope insertion time was 3 minutes. Scope withdrawal time was 6 minutes. The total duration of the procedure was 10 minutes. Findings: The perianal and digital rectal examinations were normal. The terminal ileum appeared normal. A 15 mm scar was found in the rectum. The scar tissue was healthy in appearance. This was biopsied with a cold forceps for histology. Verification of patient identification for the specimen was done by the physician and nurse using the patient's name, date and medical record number. Estimated blood loss was minimal. Normal mucosa was found in the entire colon. Biopsies for histology were taken with a cold forceps from the right colon and left colon for evaluation of microscopic colitis. Non-bleeding external and internal hemorrhoids were found during retroflexion. The hemorrhoids were medium-sized. Impression: - The examined portion of the ileum was normal. - Scar in the rectum. Biopsied. - Normal mucosa in the entire examined colon. Biopsied. - Non-bleeding external and internal hemorrhoids. Recommendation: - Patient has a contact number available for emergencies. The signs and symptoms of potential delayed complications were discussed with the patient. Return to normal activities tomorrow. Written discharge instructions were provided to the patient. - Post gastric bypass diet (small frequent meals and avoid fatty/ fried foods). - Use fiber, for example Citrucel, Fibercon, Konsyl or Metamucil. - Miralax 1 capful (17 grams) in 8 ounces of water PO daily. - Await pathology results. - Preparation H suppository: Insert rectally daily for 5 days. - Telephone GI clinic for pathology results in 2 weeks. - Return to primary care physician. Procedure Code(s): --- Professional --- 90748, Colonoscopy, flexible; with biopsy, single or multiple Diagnosis Code(s): --- Professional --- K64.8, Other hemorrhoids K62.89, Other specified diseases of anus and rectum K52.9, Noninfective gastroenteritis and colitis, unspecified K92.1, Melena (includes Hematochezia) CPT copyright 2019 [employer]. All rights reserved. The codes documented in this report are preliminary and upon devops engineer review may be revised to meet current compliance requirements. Aldo Quiroga MD Aldo Quiroga MD 11/14/2020 12:33:17 PM Electronically signed by Aldo Quiroga MD Number of Addenda: 0 Note Initiated On: 11/14/2020 11:35 AM Estimated Blood Loss: Estimated blood loss was minimal.
[2020-11-14 12:40] VITALS: BP 136/92
== END 2020-11-14 12:56 | disposition home or self-care (01) ==
LOC: M OPP 10:14
PROVIDERS: ATTEND Internal Medicine Gastroenterology
DX: K52.9 Noninfective gastroenteritis and colitis, unspecified (principal); K92.1 Melena; R10.13 Epigastric pain; D12.6 Benign neoplasm of colon, unspecified; D12.8 Benign neoplasm of rectum; K64.8 Other hemorrhoids; K62.89 Other specified diseases of anus and rectum; K29.70 Gastritis, unspecified, without bleeding; D13.39 Benign neoplasm of other parts of small intestine; K22.8 Other specified diseases of esophagus; Z98.0 Intestinal bypass and anastomosis status; R01.1 Cardiac murmur, unspecified; R73.03 Prediabetes; J45.909 Unspecified asthma, uncomplicated; F41.9 Anxiety disorder, unspecified; D64.9 Anemia, unspecified; Z98.84 Bariatric surgery status; Z79.899 Other long term (current) drug therapy; Z83.3 Family history of diabetes mellitus; Z82.49 Family history of ischemic heart disease and other diseases of the circulatory system
CPT/HCPCS: 43239; 45380; 88305; J3010

== ENCOUNTER → 2020-11-18 | Outpatient (REF) | payer OTHER ==
[~2020-11-18] MED LIST changes: -NS 1,000 ML IV ONE
[2020-11-18 13:15] LABS: BASO % 0.3 % (0.0-1.0); EOS # 0.1 10^3/uL (0.0-0.5); EOS % 1.9 % (0.0-3.0); HEMATOCRIT 42.2 % (36.0-47.0); HEMOGLOBIN 13.4 g/dl (12.0-15.5); LYMPH # 1.5 10^3/uL (1.5-5.0); LYMPH % 25.6 % (24.0-44.0); MEAN CORPUSCULAR HEMOGLOBIN 26.5 pg (27.0-33.0); MEAN CORPUSCULAR HGB CONC 31.8 g/dl (32.0-36.5); MEAN CORPUSCULAR VOLUME 83.6 fl (80.0-96.0); MONO # 0.4 10^3/uL (0.0-0.8); MONO % 6.6 % (2.0-8.0); NEUTROPHILS # 3.9 10^3/uL (1.5-8.5); NEUTROPHILS % 65.3 % (36.0-66.0); PLATELET COUNT, AUTOMATED 298 10^3/uL (150-450); RED BLOOD COUNT 5.05 10^6/uL (4.00-5.40); WHITE BLOOD COUNT 5.9 10^3/uL (4.0-10.0)
[2020-11-18 13:33] LABS: HEMOGLOBIN A1c 6.5 %
[2020-11-18 13:52] LABS: ALBUMIN 3.5 GM/DL (3.2-5.2); ALT/SGPT 38 U/L (12-78); BILIRUBIN,TOTAL 0.4 MG/DL (0.2-1.0); BLOOD UREA NITROGEN 12 MG/DL (7-18); CALCIUM LEVEL 9.9 MG/DL (8.5-10.1); CARBON DIOXIDE LEVEL 30 MEQ/L (21-32); CHLORIDE LEVEL 102 MEQ/L (98-107); CHOLESTEROL LEVEL 197 MG/DL (<200); CHOLESTEROL RISK RATIO 4.104 (<5); CREATININE FOR GFR 0.87 MG/DL (0.55-1.30); FREE T4 0.89 NG/DL (0.76-1.46); GLOMERULAR FILTRATION RATE > 60.0 (>58); GLUCOSE, FASTING 123 MG/DL (70-100); HDL CHOLESTEROL 48 MG/DL (>40); LDL CHOLESTEROL 114 MG/DL (<100); NON-HDL-C 149 MG/DL; SODIUM LEVEL 139 MEQ/L (136-145); TOTAL 25(OH) VITAMIN D 19.9 NG/ML (30.0-100.0); TOTAL PROTEIN 7.5 GM/DL (6.4-8.2); TRIGLYCERIDES LEVEL 175 MG/DL (<150)
== END ==
LOC: M LAB REF 12:43
PROVIDERS: ATTEND Nurse Practitioner Family
DX: E78.5 Hyperlipidemia, unspecified (principal); D64.9 Anemia, unspecified; E55.9 Vitamin D deficiency, unspecified; E66.9 Obesity, unspecified

== ENCOUNTER → 2020-12-10 | Outpatient (REF) | payer OTHER | LOC: M SFHCWAGY 12:55 | PROVIDERS: ATTEND Nurse Practitioner Women's Health | DX: Z12.4 Encounter for screening for malignant neoplasm of cervix (principal) ==

== ENCOUNTER → 2020-12-20 | Outpatient (CLI) | payer OTHER ==
--- NOTE | 2020-12-20 11:13 | REPMRS ---
Patient History The patient states she had a clinical breast exam in 11/2020 Patient is postmenopausal. No known family history of cancer. Digital Woman Screen Mammo: December 20, 2020 - Exam #: [id number] Bilateral CC and MLO view(s) were taken. Technologist: Loraine Valdez, Technologist Prior study comparison: March 09, 2017, digital woman screen mammo performed at [facility]. FINDINGS: The breast tissue is almost entirely fat. The Volpara volumetric breast density category is: A. There has been no change in the appearance of the mammogram from the prior studies. There is no interval development of dominant mass, architectural distortion, or grouped microcalcification typical of malignancy. 3-D tomosynthesis shows no additional findings. Assessment: BI-RADS/ACR category 1 mammogram. Negative Mammogram. Recommendation Routine screening mammogram of both breasts in 1 year (for women over age 40). This patient's [facility] Lifetime Breast Cancer RIsk is estimated at 7.2 %. This mammogram was interpreted with the aid of an FDA-approved computer-aided dectection system. Electronically Signed By: Long Mcneill MD 12/20/20 [id number]
== END ==
LOC: M WHC 09:32
PROVIDERS: ATTEND Nurse Practitioner Women's Health
DX: Z12.31 Encounter for screening mammogram for malignant neoplasm of breast (principal); Z78.0 Asymptomatic menopausal state

== ENCOUNTER → 2021-01-31 | Outpatient (CLI) | payer OTHER ==
[2021-01-31 09:59] LABS: BASO % 0.8 % (0.0-1.0); EOS # 0.1 10^3/uL (0.0-0.5); EOS % 1.5 % (0.0-3.0); HEMATOCRIT 41.2 % (36.0-47.0); HEMOGLOBIN 12.7 g/dl (12.0-15.5); LYMPH # 1.3 10^3/uL (1.5-5.0); LYMPH % 24.5 % (24.0-44.0); MEAN CORPUSCULAR HEMOGLOBIN 25.3 pg (27.0-33.0); MEAN CORPUSCULAR HGB CONC 30.8 g/dl (32.0-36.5); MEAN CORPUSCULAR VOLUME 82.2 fl (80.0-96.0); MONO # 0.4 10^3/uL (0.0-0.8); MONO % 6.9 % (2.0-8.0); NEUTROPHILS # 3.4 10^3/uL (1.5-8.5); NEUTROPHILS % 65.9 % (36.0-66.0); PLATELET COUNT, AUTOMATED 308 10^3/uL (150-450); RED BLOOD COUNT 5.01 10^6/uL (4.00-5.40); WHITE BLOOD COUNT 5.2 10^3/uL (4.0-10.0)
[2021-01-31 10:42] LABS: ALBUMIN 3.7 GM/DL (3.2-5.2); ALT/SGPT 30 U/L (12-78); BILIRUBIN,TOTAL 0.7 MG/DL (0.2-1.0); BLOOD UREA NITROGEN 12 MG/DL (7-18); CALCIUM LEVEL 9.7 MG/DL (8.5-10.1); CARBON DIOXIDE LEVEL 30 MEQ/L (21-32); CHLORIDE LEVEL 104 MEQ/L (98-107); CREATININE FOR GFR 0.61 MG/DL (0.55-1.30); GLOMERULAR FILTRATION RATE > 60.0 (>58); GLUCOSE, FASTING 145 MG/DL (70-100); POTASSIUM SERUM 4.2 MEQ/L (3.5-5.1); RHEUMATOID FACTOR QUANT < 10.0 IU/ML (<15.0); SODIUM LEVEL 138 MEQ/L (136-145); TOTAL PROTEIN 7.5 GM/DL (6.4-8.2)
[2021-01-31 10:45] LABS: ERYTHROCYTE SEDIMENTATION RATE 56 mm/hr (0-20)
[2021-01-31 11:27] LABS: THYROID PEROXIDASE ANTIBODY < 28.0 U/ML (<60.0)
[2021-01-31 11:28] LABS: TOTAL T3 118.1 NG/DL (60.0-181.0)
[2021-02-01 16:08] LABS: ANTINUCLEAR ANTIBODIES DIRECT Negative (Negative); THRYOGLOBULIN ANTIBODIES (ATA) < 1.0 IU/mL (0.0-0.9); THYROGLOBULIN QUANTITATIVE 16.6 ng/mL (1.5-38.5)
== END ==
LOC: M LAB 07:59
PROVIDERS: ATTEND Registered Nurse General Practice
DX: L50.8 Other urticaria (principal)

== ENCOUNTER → 2021-01-31 | Outpatient (CLI) | payer OTHER ==
[2021-01-31 10:00] LABS: BASO % 0.4 % (0.0-1.0); EOS # 0.1 10^3/uL (0.0-0.5); EOS % 1.8 % (0.0-3.0); HEMATOCRIT 41.2 % (36.0-47.0); HEMOGLOBIN 12.9 g/dl (12.0-15.5); LYMPH # 1.2 10^3/uL (1.5-5.0); LYMPH % 23.5 % (24.0-44.0); MEAN CORPUSCULAR HEMOGLOBIN 25.6 pg (27.0-33.0); MEAN CORPUSCULAR HGB CONC 31.3 g/dl (32.0-36.5); MEAN CORPUSCULAR VOLUME 81.9 fl (80.0-96.0); MONO # 0.4 10^3/uL (0.0-0.8); MONO % 7.1 % (2.0-8.0); NEUTROPHILS # 3.4 10^3/uL (1.5-8.5); NEUTROPHILS % 66.8 % (36.0-66.0); PLATELET COUNT, AUTOMATED 298 10^3/uL (150-450); RED BLOOD COUNT 5.03 10^6/uL (4.00-5.40); WHITE BLOOD COUNT 5.1 10^3/uL (4.0-10.0)
[2021-01-31 10:16] LABS: HEMOGLOBIN A1c 7.1 %
[2021-01-31 10:30] LABS: ALT/SGPT 29 U/L (12-78); BILIRUBIN,TOTAL 0.6 MG/DL (0.2-1.0); BLOOD UREA NITROGEN 11 MG/DL (7-18); CALCIUM LEVEL 9.7 MG/DL (8.5-10.1); CARBON DIOXIDE LEVEL 30 MEQ/L (21-32); CHLORIDE LEVEL 105 MEQ/L (98-107); CHOLESTEROL LEVEL 178 MG/DL (<200); CHOLESTEROL RISK RATIO 3.423 (<5); CREATININE FOR GFR 0.66 MG/DL (0.55-1.30); GLOMERULAR FILTRATION RATE > 60.0 (>58); GLUCOSE, FASTING 148 MG/DL (70-100); HDL CHOLESTEROL 52 MG/DL (>40); NON-HDL-C 126 MG/DL; POTASSIUM SERUM 4.4 MEQ/L (3.5-5.1); SODIUM LEVEL 138 MEQ/L (136-145); TRIGLYCERIDES LEVEL 133 MG/DL (<150)
[2021-01-31 10:31] LABS: ALBUMIN 3.7 GM/DL (3.2-5.2); LDL CHOLESTEROL 99 MG/DL (<100); TOTAL PROTEIN 7.7 GM/DL (6.4-8.2)
[2021-01-31 11:28] LABS: TOTAL 25(OH) VITAMIN D 27.7 NG/ML (30.0-100.0)
== END ==
LOC: M LAB 07:57
PROVIDERS: ATTEND Nurse Practitioner Family
DX: E66.9 Obesity, unspecified (principal)

== ENCOUNTER → 2022-02-24 | Outpatient (REF) | payer OTHER ==
[~2022-02-24] MED LIST changes: +OMEP40CA4 PO; -OMEP40CA97 PO
== END ==
LOC: M PLALAB 08:49
PROVIDERS: ATTEND Advanced Practice Midwife
DX: Z36.9 Encounter for antenatal screening, unspecified (principal)

== ENCOUNTER → 2022-06-10 | Outpatient (CLI) | payer OTHER ==
[~2022-06-10] MED LIST changes: +ALBU6.7H6 INH; -PROV108A INH
== END ==
LOC: M WHC 13:20
PROVIDERS: ATTEND Specialist
DX: N63.20 Unspecified lump in the left breast, unspecified quadrant (principal)

== ENCOUNTER → 2022-11-23 | Outpatient (REF) | payer OTHER ==
[2022-11-23 17:01] LABS: BASO % 0.5 % (0.0-1.0); EOS # 0.1 10^3/uL (0.0-0.5); EOS % 1.1 % (0.0-3.0); HEMOGLOBIN 14.6 g/dl (12.0-15.5); LYMPH # 1.4 10^3/uL (1.5-5.0); LYMPH % 23.2 % (24.0-44.0); MEAN CORPUSCULAR HEMOGLOBIN 25.7 pg (27.0-33.0); MEAN CORPUSCULAR HGB CONC 31.7 g/dl (32.0-36.5); MONO # 0.4 10^3/uL (0.0-0.8); MONO % 6.6 % (2.0-8.0); NEUTROPHILS # 4.2 10^3/uL (1.5-8.5); NEUTROPHILS % 68.4 % (36.0-66.0); PLATELET COUNT, AUTOMATED 320 10^3/uL (150-450); RED BLOOD COUNT 5.68 10^6/uL (4.00-5.40); WHITE BLOOD COUNT 6.1 10^3/uL (4.0-10.0)
[2022-11-23 17:26] LABS: ALBUMIN 3.5 G/DL (3.2-5.2); ALKALINE PHOSPHATASE 128 U/L (46-116); ALT/SGPT 31 U/L (7.0-40); AST/SGOT 31 U/L (<34); BILIRUBIN,TOTAL 0.9 MG/DL (0.3-1.2); BLOOD UREA NITROGEN 7 MG/DL (9-23); CALCIUM LEVEL 9.5 MG/DL (8.5-10.1); CARBON DIOXIDE LEVEL 31 MMOL/L (20-31); CHLORIDE LEVEL 102 MMOL/L (98-107); CHOLESTEROL LEVEL 177 MG/DL (<200); CREATININE FOR GFR 0.65 MG/DL (0.55-1.30); GLOMERULAR FILTRATION RATE > 60.0 (>58); GLUCOSE, FASTING 134 MG/DL (60-100); HDL CHOLESTEROL 47.8 MG/DL (>40); NON-HDL-C 129 MG/DL; POTASSIUM SERUM 4.6 MMOL/L (3.5-5.1); SODIUM LEVEL 139 MMOL/L (136-145); TOTAL PROTEIN 7.5 G/DL (5.7-8.2); TRIGLYCERIDES LEVEL 171 MG/DL (<150)
[2022-11-23 17:31] LABS: HEMOGLOBIN A1c 8.2 % (4.0-6.0)
== END ==
LOC: M LAB REF 16:19
PROVIDERS: ATTEND Nurse Practitioner Family
DX: Z13.228 Encounter for screening for other metabolic disorders (principal)

== ENCOUNTER → 2022-12-21 | Outpatient (CLI) | payer OTHER ==
[~2022-12-21] MED LIST changes: +ALBU2.5V10; +ALBU8.5H; +TRUL0.5I SC
[2022-12-21 10:23] LABS: BASO % 0.3 % (0.0-1.0); EOS # 0.1 10^3/uL (0.0-0.5); EOS % 1.6 % (0.0-3.0); HEMATOCRIT 42.7 % (36.0-47.0); HEMOGLOBIN 13.5 g/dl (12.0-15.5); LYMPH # 1.3 10^3/uL (1.5-5.0); LYMPH % 23.2 % (24.0-44.0); MEAN CORPUSCULAR HEMOGLOBIN 25.5 pg (27.0-33.0); MEAN CORPUSCULAR HGB CONC 31.6 g/dl (32.0-36.5); MEAN CORPUSCULAR VOLUME 80.7 fl (80.0-96.0); MONO # 0.4 10^3/uL (0.0-0.8); MONO % 6.9 % (2.0-8.0); NEUTROPHILS # 3.9 10^3/uL (1.5-8.5); NEUTROPHILS % 67.7 % (36.0-66.0); PLATELET COUNT, AUTOMATED 303 10^3/uL (150-450); RED BLOOD COUNT 5.29 10^6/uL (4.00-5.40); WHITE BLOOD COUNT 5.8 10^3/uL (4.0-10.0)
[2022-12-21 10:45] LABS: ALBUMIN 3.3 G/DL (3.2-5.2); ALKALINE PHOSPHATASE 127 U/L (46-116); ALT/SGPT 30 U/L (7.0-40); AST/SGOT 25 U/L (<34); BILIRUBIN,TOTAL 0.5 MG/DL (0.3-1.2); BLOOD UREA NITROGEN 11 MG/DL (9-23); CALCIUM LEVEL 8.9 MG/DL (8.5-10.1); CARBON DIOXIDE LEVEL 32 MMOL/L (20-31); CHLORIDE LEVEL 103 MMOL/L (98-107); CREATININE FOR GFR 0.79 MG/DL (0.55-1.30); GLOMERULAR FILTRATION RATE > 60.0 (>58); GLUCOSE, FASTING 199 MG/DL (60-100); POTASSIUM SERUM 4.3 MMOL/L (3.5-5.1); SODIUM LEVEL 139 MMOL/L (136-145); TOTAL PROTEIN 6.9 G/DL (5.7-8.2)
== END ==
LOC: M RAD 09:17
PROVIDERS: ATTEND Nurse Practitioner Family
DX: Z01.818 Encounter for other preprocedural examination (principal)

== ENCOUNTER 2023-01-01 09:15 | Day surgery (SDC) | payer OTHER ==
[~2023-01-01] VITALS: Ht 157.5 cm; Wt 83.5 kg
[2023-01-01] MEDS ORDERED: LR 1,000 ML IV SCH ×2 (10:35→13:55)
[2023-01-01] MEDS ORDERED: MIDAZOLAM INJ 2MG/2ML VIAL As Ordered ONE (12:55)
[2023-01-01] MEDS ORDERED: fentaNYL 100 MCG/2 ML INJECTION As Ordered ONE (12:56)
[2023-01-01] MEDS ORDERED: fentaNYL 100 MCG/2 ML INJECTION IV PRN (13:20)
[2023-01-01] MEDS ORDERED: ONDANSETRON 4MG 2ML VIAL IV PRN (13:20)
[2023-01-01] MEDS ORDERED: oxyCODONE 5MG TAB PO PRN (13:20)
[2023-01-01] MEDS ORDERED: LIDOCAINE W/EPINEPHRINE 1% 20ML VIAL As Ordered ONE (13:36)
[2023-01-01] MEDS ORDERED: hydrALAZINE 20MG/ML 1ML VIAL As Ordered ONE (13:39)
[2023-01-01] MEDS ORDERED: hydrALAZINE 20MG/ML 1ML VIAL IV PRN (13:40)
[2023-01-01] MEDS: HYDROMORPHONE HCL 0.5 MG/ 0.5 ML SYRINGE IV PRN ×2 (13:41→13:47)
[2023-01-01 14:48] VITALS: BP 110/63
== END 2023-01-01 15:10 | disposition home or self-care (01) ==
LOC: M SDC 09:15
PROVIDERS: ATTEND Dentist Oral and Maxillofacial Surgery
DX: K02.9 Dental caries, unspecified (principal); E11.9 Type 2 diabetes mellitus without complications; J45.909 Unspecified asthma, uncomplicated; Z79.51 Long term (current) use of inhaled steroids; Z79.899 Other long term (current) drug therapy
CPT/HCPCS: 88300; D7111; D9223; J0360; J1170; J2250; J3010

== ENCOUNTER → 2023-05-19 | Outpatient (REF) | payer OTHER ==
[2023-05-19 18:56] LABS: HEMOGLOBIN A1c 9.7 % (4.0-6.0)
[2023-05-19 19:08] LABS: CHOLESTEROL RISK RATIO 3.83 (<5); HDL CHOLESTEROL 43.3 MG/DL (>40); LDL CHOLESTEROL 95.3 MG/DL (<100); NON-HDL-C 122.7 MG/DL
== END ==
LOC: M LAB REF 16:51
PROVIDERS: ATTEND Nurse Practitioner Family
DX: E11.65 Type 2 diabetes mellitus with hyperglycemia (principal); R79.89 Other specified abnormal findings of blood chemistry

== ENCOUNTER → 2023-06-10 | Outpatient (CLI) | payer OTHER | LOC: M WUC 08:55 | PROVIDERS: ATTEND Nurse Practitioner Family | DX: M43.06 Spondylolysis, lumbar region (principal) ==

== ENCOUNTER → 2024-07-11 | Outpatient (REF) | payer OTHER ==
[2024-07-11 12:47] LABS: BASO % 0.5 % (0.0-1.0); EOS % 0.7 % (0.0-3.0); HEMATOCRIT 38.9 % (36.0-47.0); HEMOGLOBIN 12.8 g/dl (12.0-15.5); LYMPH # 1.8 10^3/uL (1.5-5.0); LYMPH % 31.4 % (24.0-44.0); MEAN CORPUSCULAR HEMOGLOBIN 25.7 pg (27.0-33.0); MEAN CORPUSCULAR HGB CONC 32.9 g/dl (32.0-36.5); MONO # 0.4 10^3/uL (0.0-0.8); MONO % 7.1 % (2.0-8.0); NEUTROPHILS # 3.5 10^3/uL (1.5-8.5); NEUTROPHILS % 60.1 % (36.0-66.0); PLATELET COUNT, AUTOMATED 281 10^3/uL (150-450); RED BLOOD COUNT 4.99 10^6/uL (4.00-5.40); WHITE BLOOD COUNT 5.8 10^3/uL (4.0-10.0)
[2024-07-11 13:01] LABS: HEMOGLOBIN A1c 9.8 % (4.0-6.0)
[2024-07-11 13:04] LABS: ALBUMIN 3.5 G/DL (3.2-5.2); ALKALINE PHOSPHATASE 158 U/L (46-116); ALT/SGPT 27 U/L (7.0-40); AST/SGOT 18 U/L (<34); BILIRUBIN,TOTAL 0.5 MG/DL (0.3-1.2); BLOOD UREA NITROGEN 15 MG/DL (9-23); CALCIUM LEVEL 9.8 MG/DL (8.5-10.1); CARBON DIOXIDE LEVEL 28 MMOL/L (20-31); CHLORIDE LEVEL 103 MMOL/L (98-107); CHOLESTEROL LEVEL 183 MG/DL (<200); CHOLESTEROL RISK RATIO 4.13 (<5); CREATININE FOR GFR 0.52 MG/DL (0.55-1.30); GLOMERULAR FILTRATION RATE > 60.0 (>51); GLUCOSE, FASTING 281 MG/DL (60-100); HDL CHOLESTEROL 44.3 MG/DL (>40); LDL CHOLESTEROL 102.7 MG/DL (<100); MAGNESIUM LEVEL 1.7 MG/DL (1.8-2.4); NON-HDL-C 138.7 MG/DL; POTASSIUM SERUM 4.1 MMOL/L (3.5-5.1); SODIUM LEVEL 136 MMOL/L (136-145); TOTAL PROTEIN 7.4 G/DL (5.7-8.2); TRIGLYCERIDES LEVEL 180 MG/DL (<150)
== END ==
LOC: M LAB REF 11:49
PROVIDERS: ATTEND Nurse Practitioner Family
DX: E66.9 Obesity, unspecified (principal)

== ENCOUNTER → 2024-07-27 | Outpatient (CLI) | payer OTHER | LOC: M RAD 12:27 | PROVIDERS: ATTEND Nurse Practitioner Family | DX: M79.641 Pain in right hand (principal) ==

== ENCOUNTER → 2024-07-27 | Outpatient (REF) | payer OTHER ==
[2024-07-27 12:51] LABS: CREATININE, URINE 92.4 MG/DL; MALB URINE SIEMENS < 3.0 MG/L; MAU/CREAT RATIO 3.2 MCG/MG (0.0-30.0)
== END ==
LOC: M LAB REF 11:39
PROVIDERS: ATTEND Nurse Practitioner Family
DX: E11.65 Type 2 diabetes mellitus with hyperglycemia (principal)

== ENCOUNTER → 2024-09-29 | Outpatient (CLI) | payer OTHER | LOC: M WHC 14:34 | PROVIDERS: ATTEND Advanced Practice Midwife | DX: Z12.31 Encounter for screening mammogram for malignant neoplasm of breast (principal); Z13.820 Encounter for screening for osteoporosis; R92.323 Mammographic fibroglandular density, bilateral breasts; M85.851 Other specified disorders of bone density and structure, right thigh ==

== ENCOUNTER → 2024-10-05 | Outpatient (REF) | payer OTHER ==
[2024-10-05 14:48] LABS: ALKALINE PHOSPHATASE 134 U/L (35-104); ALT/SGPT 22 U/L (7.0-40); AST/SGOT 22 U/L (<34); BILIRUBIN,TOTAL 0.4 MG/DL (0.3-1.2); BLOOD UREA NITROGEN 12 MG/DL (9-23); CARBON DIOXIDE LEVEL 30 MMOL/L (20-31); CHLORIDE LEVEL 104 MMOL/L (98-107); CHOLESTEROL LEVEL 184 MG/DL (<200); CHOLESTEROL RISK RATIO 3.88 (<5); CREATININE FOR GFR 0.72 MG/DL (0.55-1.30); GLOMERULAR FILTRATION RATE > 60.0 (>51); GLUCOSE, FASTING 112 MG/DL (60-100); HDL CHOLESTEROL 47.4 MG/DL (>40); NON-HDL-C 136.6 MG/DL; SODIUM LEVEL 140 MMOL/L (136-145); TOTAL PROTEIN 7.9 G/DL (5.7-8.2); TRIGLYCERIDES LEVEL 153 MG/DL (<150)
[2024-10-05 15:41] LABS: HEMOGLOBIN A1c 6.6 % (4.0-6.0)
== END ==
LOC: M LAB REF 13:51
PROVIDERS: ATTEND Nurse Practitioner Family
DX: E11.65 Type 2 diabetes mellitus with hyperglycemia (principal); R79.89 Other specified abnormal findings of blood chemistry

== ENCOUNTER → 2024-10-12 | Outpatient (CLI) | payer OTHER ==
[2024-10-12 12:23] LABS: BASO % 0.4 % (0.0-1.0); EOS # 0.1 10^3/uL (0.0-0.5); EOS % 1.8 % (0.0-3.0); HEMATOCRIT 43.3 % (36.0-47.0); HEMOGLOBIN 13.9 g/dl (12.0-15.5); LYMPH # 1.7 10^3/uL (1.5-5.0); LYMPH % 23.5 % (24.0-44.0); MEAN CORPUSCULAR HEMOGLOBIN 25.8 pg (27.0-33.0); MEAN CORPUSCULAR HGB CONC 32.1 g/dl (32.0-36.5); MEAN CORPUSCULAR VOLUME 80.3 fl (80.0-96.0); MONO # 0.5 10^3/uL (0.0-0.8); MONO % 7.5 % (2.0-8.0); NEUTROPHILS # 4.7 10^3/uL (1.5-8.5); NEUTROPHILS % 66.5 % (36.0-66.0); PLATELET COUNT, AUTOMATED 350 10^3/uL (150-450); RED BLOOD COUNT 5.39 10^6/uL (4.00-5.40); WHITE BLOOD COUNT 7.1 10^3/uL (4.0-10.0)
[2024-10-12 12:51] LABS: ALBUMIN 3.6 G/DL (3.2-5.2); ALKALINE PHOSPHATASE 131 U/L (35-104); ALT/SGPT 18 U/L (7.0-40); AST/SGOT 17 U/L (<34); BILIRUBIN,TOTAL 0.4 MG/DL (0.3-1.2); BLOOD UREA NITROGEN 13 MG/DL (9-23); CALCIUM LEVEL 9.8 MG/DL (8.5-10.1); CARBON DIOXIDE LEVEL 32 MMOL/L (20-31); CHLORIDE LEVEL 102 MMOL/L (98-107); CREATININE FOR GFR 0.69 MG/DL (0.55-1.30); GLOMERULAR FILTRATION RATE > 60.0 (>51); GLUCOSE, FASTING 95 MG/DL (60-100); POTASSIUM SERUM 4.3 MMOL/L (3.5-5.1); SODIUM LEVEL 141 MMOL/L (136-145); TOTAL PROTEIN 7.9 G/DL (5.7-8.2)
[2024-10-12 12:54] LABS: HEMOGLOBIN A1c 6.6 % (4.0-6.0)
== END ==
LOC: M LAB 11:19
PROVIDERS: ATTEND Nurse Practitioner Family
DX: Z01.818 Encounter for other preprocedural examination (principal)

== ENCOUNTER → 2024-12-19 | Outpatient (CLI) | payer OTHER | LOC: M RAD 14:45 | PROVIDERS: ATTEND Nurse Practitioner Family | DX: I83.91 Asymptomatic varicose veins of right lower extremity (principal) ==

== ENCOUNTER → 2025-01-04 | Outpatient (CLI) | payer OTHER ==
[2025-01-04 09:26] LABS: HEMOGLOBIN A1c 6.2 % (4.0-6.0)
[2025-01-04 09:35] LABS: TOTAL IRON BINDING CAPACITY 323 UG/DL (250-425)
[2025-01-04 09:36] LABS: ALBUMIN 3.7 G/DL (3.2-5.2); ALKALINE PHOSPHATASE 118 U/L (35-104); ALT/SGPT 26 U/L (7.0-40); AST/SGOT 20 U/L (<34); BILIRUBIN,TOTAL 0.5 MG/DL (0.3-1.2); BLOOD UREA NITROGEN 11 MG/DL (9-23); CALCIUM LEVEL 9.8 MG/DL (8.5-10.1); CARBON DIOXIDE LEVEL 32 MMOL/L (20-31); CHLORIDE LEVEL 102 MMOL/L (98-107); CHOLESTEROL LEVEL 172 MG/DL (<200); CHOLESTEROL RISK RATIO 3.83 (<5); CREATININE FOR GFR 0.67 MG/DL (0.55-1.30); GLOMERULAR FILTRATION RATE > 90.0 (>51); GLUCOSE, FASTING 113 MG/DL (60-100); HDL CHOLESTEROL 44.9 MG/DL (>40); IRON (FE) 59 UG/DL (50-170); LDL CHOLESTEROL 92.1 MG/DL (<100); NON-HDL-C 127.1 MG/DL; PERCENT SATURATION 18.3 % (13.2-45.0); POTASSIUM SERUM 4.6 MMOL/L (3.5-5.1); SODIUM LEVEL 141 MMOL/L (136-145); TOTAL PROTEIN 7.5 G/DL (5.7-8.2); TRIGLYCERIDES LEVEL 175 MG/DL (<150)
== END ==
LOC: M LAB 08:09
PROVIDERS: ATTEND Nurse Practitioner Family
DX: D64.9 Anemia, unspecified (principal); E11.65 Type 2 diabetes mellitus with hyperglycemia; R79.89 Other specified abnormal findings of blood chemistry

== ENCOUNTER → 2025-01-24 | Outpatient (REF) | payer OTHER | LOC: M LAB REF 19:04 | PROVIDERS: ATTEND Nurse Practitioner Family | DX: R30.0 Dysuria (principal); M54.50 Low back pain, unspecified ==

== ENCOUNTER → 2025-08-20 | Outpatient (REF) | payer OTHER ==
[2025-08-20 17:38] LABS: ALT/SGPT 27 U/L (7.0-40); AST/SGOT 31 U/L (<34); BASO # 0.0 10^3/uL (0.0-0.2); BASO % 0.3 % (0.0-1.0); CALCIUM LEVEL 10.1 MG/DL (8.5-10.1); CARBON DIOXIDE LEVEL 28 MMOL/L (20-31); CHLORIDE LEVEL 100 MMOL/L (98-107); CHOLESTEROL LEVEL 176 MG/DL (<200); CHOLESTEROL RISK RATIO 3.23 (<5); CREATININE FOR GFR 0.74 MG/DL (0.55-1.30); EOS # 0.0 10^3/uL (0.0-0.5); EOS % 0.4 % (0.0-3.0); GLOMERULAR FILTRATION RATE > 90.0 (>51); IRON (FE) 54 UG/DL (50-170); LDL CHOLESTEROL 95.2 MG/DL (<100); LYMPH # 1.6 10^3/uL (1.5-5.0); LYMPH % 21.7 % (24.0-44.0); MONO # 0.4 10^3/uL (0.0-0.8); MONO % 5.1 % (2.0-8.0); NEUTROPHILS # 5.2 10^3/uL (1.5-8.5); NEUTROPHILS % 72.2 % (36.0-66.0); NON-HDL-C 121.6 MG/DL; PERCENT SATURATION 15.7 % (13.2-45.0); PLATELET COUNT, AUTOMATED 426 10^3/uL (150-450); POTASSIUM SERUM 4.5 MMOL/L (3.5-5.1); SODIUM LEVEL 137 MMOL/L (136-145); TRIGLYCERIDES LEVEL 132 MG/DL (<150)
[2025-08-20 17:41] LABS: VITAMIN B12 LEVEL 518 PG/ML (211-911)
[2025-08-20 17:53] LABS: CREATININE, URINE 68.5 MG/DL
[2025-08-20 17:54] LABS: MALB URINE SIEMENS < 3.0 MG/L
[2025-08-20 18:08] LABS: ESTIMATED AVERAGE GLUCOSE 243.0 MG/DL (60-110)
== END ==
LOC: M LAB REF 16:14
PROVIDERS: ATTEND Student in an Organized Health Care Education/Training Program
DX: D64.9 Anemia, unspecified (principal); E11.9 Type 2 diabetes mellitus without complications; R79.89 Other specified abnormal findings of blood chemistry; E66.811 Obesity, class 1